=== PATIENT | female | born 1950 | race Caucasian/White ===

== ENCOUNTER → 2020-08-25 14:35 | Outpatient (CLI) | payer MEDICARE, OTHER, SELFPAY ==
--- NOTE | ~2020-08-25 | MM_ITS ---
EXAMINATION: MM screening aroldo BI w giselle HISTORY: Screening mammogram, family history of breast cancer in her mother. TECHNIQUE: Craniocaudal and mediolateral oblique 3-D tomosynthesis images were obtained and synthetic 2-D images were generated. CAD analysis was submitted and interpreted. COMPARISON: 05/28/2019, 05/18/2019, 04/30/2018 BREAST PARENCHYMAL COMPOSITION: The breasts are heterogeneously dense, which may obscure small masses . FINDINGS: There is no evidence of suspicious mass, calcification, or architectural distortion to sugg est malignancy in either breast. There has been no suspicious interval change. IMPRESSION: 1. No mammographic evidence of malignancy. 2. Recommend routine screening mammography in one year. BI-RADS Category 1: Negative Reviewed, dictated and finalized at location A. PAINTER
== END ==
PROVIDERS: PCP Internal Medicine; Visit Provider Obstetrics & Gynecology
DX: Z12.31 Encounter for screening mammogram for malignant neoplasm of breast (principal)
CPT/HCPCS: 77063; 77067

== ENCOUNTER 2020-09-11 11:51 | Outpatient (CLI) | payer MEDICARE, OTHER, SELFPAY ==
--- NOTE | ~2020-09-11 | XR_ITS ---
XR foot LT min 3V DATE: 09/11/2020 12:13 INDICATION: Pain of second, third and fourth digits, distal second and third metatarsal area TECHNIQUE: 4 views COMPARISON: None FINDINGS: There is diffuse osteopenia. No fracture, dislocation, periosteal reaction or bone destruction is detected. There is moderate moderate narrowing at the first metatarsophalangeal joint consistent with osteoarth ritis. No erosive changes are noted. 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 D MARKETER
== END 2020-09-11 11:52 | disposition home or self-care (01) ==
PROVIDERS: PCP Internal Medicine; Visit Provider Internal Medicine
DX: M79.672 Pain in left foot (principal)
CPT/HCPCS: 73630

== ENCOUNTER → 2021-08-28 07:14 | Outpatient (CLI) | payer MEDICARE, OTHER, SELFPAY ==
--- NOTE | ~2021-08-28 | MM_ITS ---
EXAMINATION: MM screening aroldo BI w giselle HISTORY: Screening TECHNIQUE: Craniocaudal and mediolateral oblique 3-D tomosynthesis images were obtained and synthetic 2-D images were generated. CAD analysis was submitted and interpreted. COMPARISON: Comparison to multiple prior studies sequentially, with oldest reviewed study dated 02/2015. BREAST PARENCHYMAL COMPOSITION: The breasts are heterogeneously dense, which may obscure small masses . FINDINGS: There is no evidence of suspicious mass, calcification, or architectural distortion to sugg est malignancy in either breast. There has been no suspicious interval change. IMPRESSION: 1. No mammographic evidence of malignancy. 2. Recommend routine screening mammography in one year. BI-RADS Category 1: Negative Reviewed, dictated and finalized at location A. HEATER
== END ==
PROVIDERS: PCP Internal Medicine; Visit Provider Obstetrics & Gynecology
DX: Z12.31 Encounter for screening mammogram for malignant neoplasm of breast (principal)
CPT/HCPCS: 77063; 77067

== ENCOUNTER 2021-11-03 09:40 | Emergency (ER) | payer MEDICARE, OTHER, SELFPAY ==
--- NOTE | ~2021-11-03 | XR_ITS ---
EXAMINATION: XR humerus RT DATE: 11/03/2021 10:20 INDICATION: Right upper arm injury and pain. TECHNIQUE: 2 views of right humerus were obtained. COMPARISON: None. FINDINGS: Bone alignment is normal. No fracture. The glenohumeral joint is not well profiled. There i s severe acromioclavicular joint osteoarthritis. IMPRESSION: 1. Severe acromioclavicular joint osteoarthritis. Reviewed, dictated and finalized at location A.
[2021-11-03 09:54] VITALS: BP 146/67; PULSE 83; RESP 20; TEMP 36.2; O2SAT 98
--- NOTE | 2021-11-03 10:00 | ED.FALL ---
HPI - Fall General Chief Complaint: Fall Stated Complaint: fall with R pain, neck pain Time Seen by Provider: 11/03/21 10:00 Source: patient Mode of arrival: ambulatory Limitations: no limitations History of Present Illness HPI Narrative: patient presents after she had a fall yesterday at home after she tripped over her 's legs falling on her right side and causing pain to the upper right arm with no one injuries no loss of consciousness no head injury has reduced range of motion of her arm right arm secondary to pain. complaint: fall Onset (ago): day(s) Fall from: standing Fall witnessed: yes, by family Place fall occurred: home Loss of consciousness: none Prolonged down time: no Symptoms prior to fall: none Context: tripped/slipped Related Data Home Medications Medication Instructions Recorded Confirmed aspirin [Aspir-81] 81 mg PO DAILY 11/03/21 11/03/21 montelukast 10 mg PO DAILY 11/03/21 11/03/21 pravastatin 10 mg PO DAILY 11/03/21 11/03/21 spironolactone 25 mg PO DAILY 11/03/21 11/03/21 Allergies Allergy/AdvReac Type Severity Reaction Status Date / Time No Known Allergies Allergy Mild Unverified 11/03/21 10:02 Review of Systems Review of Systems: All systems reviewed & are unremarkable except as noted in HPI and below PMFSH Past Medical History Medical History HTN (hypertension) Exam Const: General: no acute distress and alert Orientation/consciousness: patient oriented x3 HENMT: Head: normal to inspection Eyes: Pupils: Equal, round and reactive pupils present Neck: Neck: normal visual inspection Chest: Chest palpation & inspection: normal inspection of the chest Resp: Effort & Inspection: normal respiratory effort Auscultation: clear to auscultation bilaterally Cardio: Rate: regular rate Rhythm: regular rhythm : Speculum Exam - Cervix: normal appearance of the cervix Back/Spine/Pelvis: Back: no CVA tenderness Skin: General skin exam: normal color Rashes: no rashes Neuro: General: patient oriented x3 and moves all extremities Extrem: Other: upper arm tenderness with palpation with mildly reduced range of motion with active movement. Psych: Mental Status: mental status grossly normal Affect: normal affect Course Course Emergency Course: Patient declined pain medication, and x-ray reviewed with patient. Vital Signs Vital signs: Vital Signs Temperature 36.2 C L 11/03/21 09:54 Pulse Rate 83 11/03/21 09:54 Respiratory Rate 20 11/03/21 09:54 Blood Pressure 146/67 H 11/03/21 09:54 Pulse Oximetry 98 11/03/21 09:54 Temperature 36.2 C L 11/03/21 09:54 Pulse Rate 83 11/03/21 09:54 Respiratory Rate 20 11/03/21 09:54 Blood Pressure 146/67 H 11/03/21 09:54 Pulse Oximetry 98 11/03/21 09:54 Critical Care Time Critical Care Time Critical Care Time: No Discharge Plan Discharge Clinical Impression: Sprain of anterior shoulder joint Patient Disposition: Home, Self-Care Condition: Stable Instructions: Antibiotic Form, Shoulder Sprain (ED) Additional Instructions: take Tylenol or Motrin as needed and follow-up with primary care physician if symptoms persist or worsen. Prescriptions: No Action aspirin [Aspir-81] 81 mg Tablet,Delayed Release (Dr/Ec) 81 mg PO DAILY RF: 0 spironolactone 25 mg tablet 25 mg PO DAILY RF: 0 pravastatin 10 mg tablet 10 mg PO DAILY RF: 0 montelukast 10 mg tablet 10 mg PO DAILY RF: 0 Follow-up/Referrals: Aaron Vidales MD [Primary Care Provider] - Time of Disposition: 10:27
== END 2021-11-03 10:33 | disposition home or self-care (01) ==
PROVIDERS: Emergency Provider Emergency Medicine; PCP Internal Medicine
DX: S43.401A Unspecified sprain of right shoulder joint, initial encounter (principal); W01.0XXA Fall on same level from slipping, tripping and stumbling without subsequent striking against object, initial encounter
CPT/HCPCS: 73060; 99283

== ENCOUNTER 2022-08-16 14:14 | Outpatient (CLI) | payer MEDICARE, OTHER, SELFPAY ==
[2022-08-16 14:32] LABS: Basophils Absolute Auto 0.04 K/mm3 (0.00-0.10); Basophils Percent Auto 0.8 % (0.0-1.0); Eosinophils Absolute Auto 0.06 K/mm3 (0.02-0.50); Eosinophils Percent Auto 1.2 % (1.0-6.0); Hematocrit 39.2 % (35.0-42.0); Hemoglobin 13.4 g/dL (11.7-13.8); Immature Granulocyte Absolute 0.02 K/mm3 (0.00-0.00); Immature Granulocyte Percent A 0.4 % (0.0-0.0); Lymphocytes Absolute Auto 0.86 K/mm3 (1.10-4.50); Lymphocytes Percent Auto 16.8 % (18.0-42.0); Mean Corpuscular HGB Conc 34.2 g/dL (32.0-36.0); Mean Corpuscular Hemoglobin 31.8 pg (27.0-31.0); Mean Corpuscular Volume 93.1 fL (78.0-102.0); Mean Platelet Volume 9.7 fl (9.2-11.8); Monocytes Absolute Auto 0.63 K/mm3 (0.10-0.90); Monocytes Percent Auto 12.3 % (2.0-11.0); Neutrophils Absolute Auto 3.5 K/mm3 (1.7-7.2); Neutrophils Percent Auto 68.5 % (50.0-70.0); Platelet Count Result 264 K/mm3 (150-420); Red Blood Count 4.21 M/mm3 (4.20-5.40); Red Cell Distribution Width 12.3 % (11.6-14.4); White Blood Count 5.1 K/mm3 (4.8-10.8)
[2022-08-16 14:33] LABS: Add Urine Microscopic? NO; Appearance Urine Clear (Clear); Bilirubin Urine Negative (Negative); Blood Urine Negative (Negative); Color Urine Light Yellow (Yellow); Glucose Urine UA Negative (Negative); Ketones Urine Negative (Negative); Leukocyte Esterase Ur Negative (Negative); Nitrate Urine Negative (Negative); Protein Urine Negative (Negative); Urobilinogen Urine 0.2 mg/dL (0.2-1.0)
[2022-08-16 15:28] LABS: Alanine Aminotransferase 56 U/L (14-59); Albumin Level 4.1 g/dL (3.4-5.0); Alkaline Phosphatase 134 U/L (46-116); Anion Gap 8 mmol/L (8-16); Aspartate Amino Transferase 28 U/L (15-37); Bilirubin,Total 0.4 mg/dL (0.00-1.00); Blood Urea Nitrogen 19 mg/dL (7-18); Calcium 8.8 mg/dL (8.5-10.1); Carbon Dioxide 30 mmol/L (21-32); Chloride 103 mmol/L (98-108); Cholesterol 223 mg/dL (0-200); Estimated Glomerular Filt Rate > 60; Glucose 91 mg/dL (70-99); HDL Direct 70 mg/dL (40-60); LDL Cholesterol Calculated 96 mg/dL (<130); Magnesium 1.9 mg/dL (1.8-2.4); Osmolality Calculated 294 mOsm/kg (285-295); Potassium 3.9 mmol/L (3.5-5.1); Sodium 141 mmol/L (136-145); Thyroid Stimulating Hormone 1.32 uIU/mL (0.36-3.74); Total Protein 7.3 g/dL (6.4-8.2); Triglycerides 284 mg/dL (0-150)
== END 2022-08-16 14:15 | disposition home or self-care (01) ==
LOC: CHSLAB 14:18
PROVIDERS: PCP Internal Medicine; Visit Provider Internal Medicine
DX: I10 Essential (primary) hypertension (principal); E78.5 Hyperlipidemia, unspecified
CPT/HCPCS: 36415; 80053; 80061; 81003; 83735; 84443; 85025

== ENCOUNTER → 2023-02-18 13:32 | Outpatient (CLI) | payer MEDICARE, OTHER, SELFPAY ==
--- NOTE | ~2023-02-18 | MM_ITS ---
EXAMINATION: MM screening aroldo BI w giselle HISTORY: Screening mammogram TECHNIQUE: Craniocaudal and mediolateral oblique 3-D tomosynthesis images were obtained and synthetic 2-D images were generated. CAD analysis was submitted and interpreted. COMPARISON: August 2021, August 25, 2020 bilateral screening mammogram examinations BREAST PARENCHYMAL COMPOSITION: The breasts are heterogeneously dense, which may obscure small masses . FINDINGS: There is no evidence of suspicious mass, calcification, or architectural distortion to sugg est malignancy in either breast. There has been no suspicious interval change. IMPRESSION: 1. No mammographic evidence of malignancy. 2. Recommend routine screening mammography in one year. BI-RADS Category 1: Negative Reviewed, dictated and finalized at location A.
== END ==
PROVIDERS: PCP Internal Medicine; Visit Provider Obstetrics & Gynecology
DX: Z12.31 Encounter for screening mammogram for malignant neoplasm of breast (principal)
CPT/HCPCS: 77063; 77067

== ENCOUNTER 2023-12-12 08:06 | Outpatient (CLI) | payer MEDICARE, SELFPAY ==
[2023-12-12 08:38] LABS: Hematocrit 38.5 % (35.0-42.0); Hemoglobin 12.9 g/dL (11.7-13.8); Mean Corpuscular HGB Conc 33.5 g/dL (32-36); Mean Corpuscular Hemoglobin 30.6 pg (27.0-31.0); Mean Corpuscular Volume 91.2 fL (78.0-102.0); Mean Platelet Volume 10.8 fl (9.2-11.8); Platelet Count Result 203 K/mm3 (150-420); Red Blood Count 4.22 M/mm3 (4.20-5.40); Red Cell Distribution Width 12.3 % (11.6-14.4); White Blood Count 3.5 K/mm3 (4.8-10.8)
[2023-12-12 08:39] LABS: Appearance Urine Clear (Clear); Bilirubin Urine Negative (Negative); Blood Urine Negative (Negative); Color Urine Light Yellow (Yellow); Glucose Urine UA Negative (Negative); Ketones Urine Negative (Negative); Leukocyte Esterase Ur 1+ (Negative); Nitrate Urine Negative (Negative); Protein Urine Negative (Negative); Specific Grav Ur >= 1.030 (1.010-1.020); Urobilinogen Urine 0.2 mg/dL (0.2-1.0); pH Urine 5.5 (5.0-8.0)
[2023-12-12 08:47] LABS: Add Urine Microscopic? YES; Bacteria Urine Trace /hpf; RBC Urine None seen /hpf (0-2); Renal Epithelial Cells Urine Few /hpf; Squamous Epithelial Cell Urine Few /hpf (Few); WBC Urine 0-3 /hpf (0-3)
[2023-12-12 09:02] LABS: Alanine Aminotransferase 45 U/L (14-59); Albumin Level 3.8 g/dL (3.4-5.0); Alkaline Phosphatase 105 U/L (46-116); Anion Gap 10 mmol/L (4-12); Aspartate Amino Transferase 31 U/L (15-37); Bilirubin,Total 0.5 mg/dL (0.00-1.00); Blood Urea Nitrogen 19 mg/dL (7-18); Calcium 8.9 mg/dL (8.5-10.1); Carbon Dioxide 24 mmol/L (21-32); Chloride 105 mmol/L (98-108); Cholesterol 199 mg/dL (0-200); Estimated Glomerular Filt Rate > 60; Glucose 99 mg/dL (70-99); HDL Direct 75 mg/dL (40-60); LDL Cholesterol Calculated 115 mg/dL (<130); Osmolality Calculated 290 mOsm/kg (285-295); Potassium 4.4 mmol/L (3.5-5.1); Sodium 139 mmol/L (136-145); Thyroid Stimulating Hormone 1.94 uIU/mL (0.36-3.74); Total Protein 6.6 g/dL (6.4-8.2); Triglycerides 44 mg/dL (0-150)
[2023-12-12 10:20] LABS: Band Neutrophils Percent 0 % (0-6); Basophils Percent Manual 0 % (0-1); Eosinophils Absolute Manual 0.14 K/mm3 (0.02-0.50); Eosinophils Percent Manual 4 % (1-6); Lymphocytes Absolute Manual 1.01 K/mm3 (1.1-4.5); Lymphocytes Percent Manual 29 % (18-44); Monocytes Absolute Manual 0.14 K/mm3 (0.1-0.90); Monocytes Percent Manual 4 % (3-9); Neutrophils Percent Manual 63 % (46-73); Platelet Estimate Adequate (Adequate); Total Cells Counted 100
== END 2023-12-12 08:07 | disposition home or self-care (01) ==
LOC: CHSLAB 08:10
PROVIDERS: PCP Internal Medicine; Visit Provider Internal Medicine
DX: I10 Essential (primary) hypertension (principal)
CPT/HCPCS: 36415; 80053; 80061; 81001; 84443; 85025

== ENCOUNTER 2024-04-05 16:01 | Outpatient (CLI) | payer MEDICARE, OTHER, SELFPAY ==
--- NOTE | ~2024-04-05 | XR_ITS ---
EXAMINATION: XR chest 2V Exam Date/Time: 04/05/2024 16:26 CDT HISTORY: URI X 1 WEEK/HX OF ASTHMA Comparison: 11/22/2016 08/08/2016. RESULT: Lines, tubes, and devices: None. Lungs and pleura: Subsegmental opacity in the posterior left lower lobe. Mild right hemidiaphragm el evation. Cardiomediastinal silhouette: Stable. Other: No acute osseous or upper abdominal finding. IMPRESSION: Subsegmental left lower lobe airspace disease, may represent atelectasis or consolidation. Reviewed, dictated and finalized at location K. IMPRESSION: Subsegmental left lower lobe airspace disease, may represent atelectasis or con solidation.
[2024-04-05 16:49] LABS: Basophils Absolute Auto 0.06 K/mm3 (0.00-0.10); Eosinophils Absolute Auto 0.24 K/mm3 (0.02-0.50); Hemoglobin 13.2 g/dL (11.7-13.8); Immature Granulocyte Percent A 1.7 % (0.0-0.0); Lymphocytes Absolute Auto 1.28 K/mm3 (1.10-4.50); Lymphocytes Percent Auto 21.4 % (18.0-42.0); Mean Corpuscular HGB Conc 33.8 g/dL (32-36); Mean Corpuscular Hemoglobin 31.1 pg (27.0-31.0); Mean Platelet Volume 10.4 fl (9.2-11.8); Monocytes Absolute Auto 0.57 K/mm3 (0.10-0.90); Monocytes Percent Auto 9.5 % (2.0-11.0); Neutrophils Absolute Auto 3.72 K/mm3 (1.70-7.20); Neutrophils Percent Auto 62.4 % (50.0-70.0); Platelet Count Result 288 K/mm3 (150-420); Red Blood Count 4.24 M/mm3 (4.20-5.40); Red Cell Distribution Width 11.8 % (11.6-14.4)
[2024-04-05 17:58] LABS: Anion Gap 10 mmol/L (4-12); Blood Urea Nitrogen 12 mg/dL (7-18); Calcium 9.3 mg/dL (8.5-10.1); Carbon Dioxide 26 mmol/L (21-32); Chloride 103 mmol/L (98-108); Estimated Glomerular Filt Rate 48; Glucose 101 mg/dL (70-99); Osmolality Calculated 287 mOsm/kg (285-295); Potassium 4.6 mmol/L (3.5-5.1); Sodium 139 mmol/L (136-145)
== END 2024-04-05 16:02 | disposition home or self-care (01) ==
LOC: CHSLAB 16:04
PROVIDERS: PCP Internal Medicine; Visit Provider Nurse Practitioner Family
DX: J06.9 Acute upper respiratory infection, unspecified (principal); R91.8 Other nonspecific abnormal finding of lung field
CPT/HCPCS: 36415; 71046; 80048; 85025

== ENCOUNTER 2024-04-19 09:03 | Outpatient (CLI) | payer MEDICARE, OTHER, SELFPAY ==
--- NOTE | ~2024-04-19 | XR_ITS ---
EXAMINATION: XR chest 2V 04/19/2024 09:27 INDICATION: Cough follow-up PROCEDURE: 2 view chest COMPARISON: Comparison to multiple prior studies sequentially, with oldest reviewed study dated 11/2016. FINDINGS: The lungs are clear. The cardiomediastinal silhouette is within normal limits. There are no pleural effusions. There is no pneumothorax suspected. There is a lower thoracic compression fra cture, likely chronic. IMPRESSION: 1: NO ACUTE CARDIOPULMONARY DISEASE. Reviewed, dictated and finalized at location B.
== END 2024-04-19 09:04 | disposition home or self-care (01) ==
LOC: CHSIMG 09:05
PROVIDERS: PCP Internal Medicine; Visit Provider Internal Medicine
DX: R05.9 Cough, unspecified (principal)
CPT/HCPCS: 71046

== ENCOUNTER 2024-05-03 11:56 | Outpatient (CLI) | payer MEDICARE, OTHER, SELFPAY ==
--- NOTE | ~2024-05-03 | XR_ITS ---
Left Hand Technique: PA, oblique, and lateral views were obtained. Clinical History: Third digit pain Findings: There are probable small, minimally less place oblique intra-articular fracture at the dors al aspect of the base of the third distal phalanx. No other fracture or dislocation seen.. Joint spac es are preserved. Soft tissues are unremarkable. Impression: Probable small intra-articular fracture at the dorsal aspect of the base of the third middle phalanx, as above. Reviewed, dictated and finalized at location M. Impression: Probable small intra-articular fracture at the dorsal aspect of the base of the third middle phalanx, as above.
== END 2024-05-03 11:57 | disposition home or self-care (01) ==
LOC: CHSIMG 11:59
PROVIDERS: PCP Internal Medicine; Visit Provider Internal Medicine
DX: M20.012 Mallet finger of left finger(s) (principal)
CPT/HCPCS: 73130

== ENCOUNTER 2024-09-05 07:55 | Emergency (ER) | payer MEDICARE, OTHER, SELFPAY ==
--- NOTE | ~2024-09-05 | XR_ITS ---
HISTORY: Fall, Lt. posterior chest wall pain COMPARISON: 04/19/2024 TECHNIQUE: 3 views of the left ribs were performed along with a PA and lateral view of the chest FINDINGS: No acute displaced left-sided rib fracture is appreciated. The adjacent left lung is unremarkable. The cardiomediastinal silhouette is unremarkable. The lungs are clear. Compression of a lower thoracic vertebral body, unchanged from 04/19/2024, likely chronic. Bone mineralization is age-appropriate. IMPRESSION: No acute displaced left-sided rib fracture. The lungs are clear. Reviewed, dictated and finalized at location A. TERIE TABLE ASSEMBLER
--- OUTSIDE RECORDS SUMMARY | 2024-09-05 07:57 | XMS_ITS | Data Portability ---
Author Organization [facility], [address] [place] [address] [place]rology ([place]) Address [address] [place] [address] Care Team Providers Care Extra Gang Supervisor Name Role Phone JETT LAZO Primary Care Provider [phone] JETT CHAVIRA Referring Provider Assessment Encounter Date Assessment Date Assessment LastModified by Organization Details LastModified Time 01/14/2024 01/14/2024 The patient has chronic right carpal tunnel syndrome. Treatment options were discussed with her. She is going to be scheduled for right carpal tunnel release. The surgical procedure was discussed with her in detail including risks, benefits, and possible complications. Possible complications discussed included infection, nerve injury occurring during the procedure resulting in permanent numbness or weakness and the possibility of persistent or recurrent symptoms. All of her questions were answered and she is agreeable to proceed with the proposed surgical procedure. jules [email or web address] Not available 01/16/2024 14:52:44 02/10/2024 02/10/2024 The history and physical dated completed by {{}}has been reviewed, the patient has been examined and no change has occurred in the patient s condition since the history and physical was completed. [email or web address] Not available 02/10/2024 05:35:01 02/24/2024 02/24/2024 Chief complaint: Status post right carpal tunnel release History of present illness: Patient is a 73-year-old female presenting to the clinic for postoperative evaluation 2 weeks following a right carpal tunnel release. Patient reports she is doing very well and her pain is well-controlled. Patient denies any erythema or drainage from her incision. Patient reports her numbness and tingling has improved since surgery. Exam: Patient is in no acute distress and is well-dressed and well-nourished. Patient has appropriate mood and affect. Respirations are nonlabored. Sclera are nonicteric. Patient has a well-healed surgical incision that is without erythema or ecchymosis. Patient has good cheerleading coach strength and is able to flex and extend all fingers without difficulty. Radial pulses 2+. Capillary refill jackson is jackson and occurs within 2 seconds. Assessment: Status post right carpal tunnel release Plan: Patient is doing very well following the surgery. Sutures were removed in office today. She was instructed on proper postoperative care including scar tissue massage and Theraputty. Patient will call the office with any questions or concerns. marcia Not available 02/24/2024 11:22:10 Plan of Treatment Reminders Order Date Submit Date Provider Last Modified By Organization Details Last Modified Time Details Appointments None recorded. Lab None recorded. Referral None recorded. Procedures None recorded. Surgeries None recorded. Imaging None recorded. Medication Orders hydrocodone 5 mg-acetamin ophen 325 mg tablet 2023 024 [facility], [address], [place], [id number], 16:13:36 Patient TargetsNo targets recorded. Patient InstructionsNo instructions recorded. Reason for Referral None Reported. Results Created Date Observation Date Name Description Value Unit Range Abnormal Flag Note LastModifiedBy Organization Detail LastModifiedTime 01/08/20 24 12/06/2021 nerve condu ction study /EMG (PROC ) No observ ation record ed. [email or web address] [facility] [address], [place], [address], 01/08/2024 11:58:45 Result Notes None recorded. Problems Name Problem SNOMED Code Status Onset Date Resolution Date Notes Provider Name and Address Organization Details Recorded Time Carpal tunnel syndrome of right wrist [id number] Active 2023 Katerina Zilauren [facility] 4 12:05:59 Problem Notes None recorded. Procedures Surgical History Date Name Laterality Status Provider Name and Address Organization Details Recorded Time 02/10/20 24 [place] Operative Report completed Jaylon Montague MD [address] [place] [address], [phone], [facility] 02/11/2024 05:22:42 02/10/20 Carpal tunnel surgery completed Pily Fisher [facility] 03/18/2024 17:00:39 Colonoscopy with biopsy completed Not Available Health Note 02/17/2024 11:58:17 Imaging Results Imaging Date Name Status LastModified by Organiz ation Details LastModified Time 12/06/2021 nerve conduction study/EMG (PROC) completed [email or web address] [facility] [address] [place] [address], [address], 01/08/2024 11:58:45 Procedure Notes None recorded. Medical Equipment None Reported. Allergies No known drug allergies Medications Name Sig Start Date Stop Date Status Note LastModified by Organization Details LastModified Time hydrocodone 5 mg-acetaminophe n 325 mg tablet Take 1-2 tablets every 6 hours as needed for pain active Not Available Not Available No t Available spironolactone 25 mg tablet active Not Available Not Available Not Available pravastatin 10 mg tablet active Not Available Not Available No t Available montelukast 10 mg tablet active Not Available Not Available No t Available Vitals None Recorded Social History Question Answer Notes LastModified by Organizat ion Details LastModified Time Do You Have An Advance Directive? No [email or web address] Information not available 02/17/2024 What Is Your Level Of Alcohol Consumption? Occasional [email or web address] Information not available 02/17/2024 How Many Times Per Week Do You Consume Alcohol? 1-2 Times Per Week [email or web address] Information not available 02/17/2024 What Is Your Level Of Caffeine Consumption? Moderate [email or web address] Information not available 02/17/2024 Are You Currently Employed? 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 3-4 Times Per Week [email or web address] Information not available 02/17/2024 Do You Have A Medical Power Of Cad Engineer? No [email or web address] Information not available 02/17/2024 What Was The Date Of Your Most Recent Tobacco Screening? 02/24/2024 [email or web address] Information not available 02/17/2024 What Is Your Relationship Status? [email or web address] Information not available 02/17/2024 Do You Use Any Illicit Or Recreational Drugs? No [email or web address] Information not available 02/17/2024 Sex: Unknown Functional Status Question Answer Note LastModified by Organization D etails LastModified Time What is your exercise level? Moderate [email or web address] Information not available 02/17/2024 Mental Status None recorded. Family History Relationship Description Onset Age of this Age Resolved Age Notes LastModified by Organization Details LastModified Time Father Arthritis [email or web address] Not available 01/12/2024 17:08:56 Father Family history of malignant neoplasm [email or web address] Not available 2023 17:08:56 Father Chronic obstructive pulmonary disease [email or web address] Not available 2023 17:08:56 Father Hypertensive disorder [email or web address] Not available 2023 11:58:16 Mother Asthma [email or web address] Not available 17:08:56 Mother Cerebrovascu lar accident [email or web address] Not available 17:08:56 Mother Osteoporosis [email or web address] Not availa ble 02/17/2024 11:58:16 Sister Family history of malignant neoplasm [email or web address] Not available 2023 17:08:56 Brother Family history of malignant neoplasm [email or web address] Not available 2023 17:08:56 Brother Chronic obstructive pulmonary disease [email or web address] Not available 2023 17:08:56 Brother Heart disease [email or web address] Not available 2023 17:08:56 Brother Hypertensive disorder [email or web address] Not available 2023 17:08:56 Brother Asthma [email or web address] Not available 0 02/17/2024 11:58:16 Medical History Condition Response Attention-deficit Hyperactivity Disorder N High Blood Pressure Y Thyroid Problems N COPD N Depression N Anemia N Diabetes N Anxiety Disorder N Bleeding Disorder N Arthritis N Hyperlipidemia Y Cancer N Stroke N Asthma Y Seizures N Heart Disease N Fibromyalgia N Osteoporosis N Kidney Disease N Gynecological HistoryNo gynecological history recorded. Obstetrics History GPAL:G 0 P 0 0 0 0 Past Encounters Encounter ID Performer Location Encounter Start Date Encounter Closed Date Diagnosis/Indication Diagnosis SNOMED-CT Code Diagnosis ICD10 Code Diagnosis Note [id number] Jaylon Montague MD [address] [facility] [address] [place] [address] 01/14/2024 11:16:49 01/14/2024 12:26:37 [id number] Thomas Barnard MD [facility] [place] [address] [place] [address], [place] [address] 02/10/2024 13:24:51 02/19/2024 15:37:36 [id number] Jaylon Montague MD [facility] [address] [place] [address], [address] [place] [address], [place] [address] 02/10/2024 13:24:52 02/11/2024 13:05:39 Carpal tunnel syndrome of right wrist [id number] G56.01 [id number] Jaylon Montague MD [address] [facility] [address], [place] [address] 02/24/2024 11:13:28 02/24/2024 11:58:49 Postoperative visit [id number] Z48.89 Removal of suture 437965 01 Z48.02 Health Concerns Section Related Observation LastModified by Organization Detai ls LastModified Time None Recorded Concern Status LastModified by Organization Details LastModified Time None Recorded Advance Directives Directive N: Payers Encounter Date Sequence Insurance Name Policy Number Policy Bojorquez Covered Member ID Bojorquez Member ID Guarantor Name 01/14/2024 1 [place] Allyson Walls Saschagiorgichasidyer [id number] Allyson Caicedoaustermeier 01/14/2024 2 [facility] [id number] Serg Natasha Pacotermeier [id number] Allyson Saschaaustermeier 02/10/2024 1 [place] Allyson Walls Saschagiorgichasidyer [id number] Allyson Caicedoaustermeier 02/10/2024 2 [facility] [id number] Serg Caicedoaustermeier [id number] Allyson Saschaaustermeier 02/10/2024 1 [place] Allyson Walls Saschagiorgibarry [id number] Allyson Lopez 02/10/2024 2 [facility] [id number] Serg Lopez [id number] Allyson Lopez 02/24/2024 1 [place] Allyson Lopez [id number] Allyson Lopez 02/24/2024 2 [facility] [id number] Serg Lopez [id number] Allyson Lopez Notes Date Note Type Note Provider Name and Address Organization Details Recorded Time 4 text/html Allyson is seen today concerning numbness and tingling in her right hand. She was seen in 2021 and was diagnosed with right carpal tunnel syndrome. She feels the symptoms have gotten worse since that time. The symptoms are worse in her middle and ring fingers but can involve the thumb and index fingers. She is waking up at night with symptoms. She gets increased symptoms during the day with various activities. Splinting at night is no longer helping her symptoms significantly. Jaylon Montague MD [facility], [address], [facility] 01/19/2024 05:06:41 4 text/html [facility] PRE-ANESTHETIC EVALUATIONReported bypatient.Reason for Visit:PROPOSED PROCEDURE: RIGHT CTR; SURGEON: Clari; PREOP DIAGNOSIS: Carpal tunnel syndrome, right upper limb Review of Systems General:Exercise tolerance moderate; Denies SOB, SMITH, PND; Denies chest pain or chest tightness Cardiac:No Hx of CAD; Hypertension; Hyperlipidemia Pulmonary:Respiratory system at baseline; Asthma ,stable Prior Anesthetic Complication:no history of anesthesia complications Family Anesthetic Hx:no history of anesthesia complications Physical Exam: AirwayMP II; Limited mouth opening TeethCrowns NeckFull range of motion CardiovascularRegular rate and rhythm RespiratoryClear to auscultation bilaterally; No wheeze noted GastrointestinalNPO status >6 hrs solids, >2 hrs clear liquids Vital Signs:Vital signs reviewed. Please refer to nursing preop note for values Assessment:ASA PS: II Plan:MAC Discussion:I have discussed with the patient the anesthetic plan, alternatives, pertinent risks, and complications; including but not limited to PONV, dental injury, sore throat, OK, stroke, etc. All questions were answered. Patient verbalize(s) understanding and agree(s) to proceed. Kai Barnard MD [address] [place] [address], [phone], [facility] 02/10/2024 14:38:49 4 text/html Allyson Corey a 73 year oldfemalepresenting for care. CHERI BONILLA PA-C [address] [place] [address], [phone], [facility] 02/25/2024 09:02:05 OBGyn Episode No OBEpisode recorded.
--- OUTSIDE RECORDS SUMMARY | 2024-09-05 07:57 | XMS_ITS | Encounter Summary ---
Author Organization [facility] Address [address] [place] [address] Care Team Providers Care Db2 Dba Name Role Phone Aaron Vidales MD Primary Care Provider [phone] Encounter Details Date Type Department Care Team (Late st Contact Info) Description 03/29/2021 Lab Requisition [facility] DermPath Lab [address] [place] [phone] Fernando Ortiz MD [address] [place] [address] Social History Tobacco Use Types Packs/Day Years Used Date Smoking Tobacco: Never Smokeless Tobacco: Never Alcohol Use Standard Drinks/Week Comments Yes 0 (1 standard drink = 0.6 oz pur e alcohol) Sex and Gender Information Value Date Recorded Sex Assigned at Not on file Gender Identity Not on file Sexual Orientation Not on file documented as of this encounter Plan of Treatment Not on file documented as of this encounter Procedures Procedure Name Priority Date/Time Associated Diagnosis Comments DERMATOPATHOLOGY Routine 03/28/2021 12:0 0 AM CDT documented in this encounter Results * DERMATOPATHOLOGY (03/28/2021 12:00 AM CDT) Case Report Dermatopathology Report Case: [id number] Authorizing Provider: Fernando Ortiz MD Collected: 03/28/2021 12:00 AM Ordering Location: [facility] DermPath Lab Received: 03/29/2021 01:14 PM Pathologist: Vini Briseno MD Specimen: Skin, right mid lat upper arm 4:10 PM CDT DERMATOPATHOLOGY LABORATORY Final Diagnosis Specimen A. SKIN, right mid lat upper arm: SEBORRHEIC KERATOSIS, CLONAL TYPE; IRRITATED (L82.1) 4:10 PM CDT DERMATOPATHOLOGY LABORATORY Clinical History R/O SCC, LPLK, Ramírez's, ISK. 4:10 PM CDT DERMATOPATHOLOGY LABORATORY Gross Description Specimen A: Received is one formalin filled container labeled with the patient's name and designated right mid lat upper arm. The specimen consists of a shave biopsy measuring [id number]. Jar 0. 4:10 PM CDT DERMATOPATHOLOGY LABORATORY Microscopic Description Specimen A. SKIN, right mid lat upper arm: Sections show a proliferation of keratinocytes with overlying hyperkeratosis. Aggregates of keratinocytes with abundant pale-staining cytoplasm appear demarcated from surrounding basaloid keratinocytes. 4:10 PM CDT DERMATOPATHOLOGY LABORATORY Disclaimer An external and internal positive and negative controls are appropriate for the histochemical, immunohistochemical and immunofluorescence stain(s) in this case (if any), except where stated explicitly. The performance characteristics of the stain(s) cited in this report were developed and its performance characteristic determined by the Dermatopathology Laboratory at [facility], directed by Dr. Shakira Briseno. These tests need not be, and therefore are not, approved by the [place] Food and Drug Administration. The tests are used for clinical purposes. Billing Codes Specimen Charges Stain Charges 23078 1 4:10 PM CDT DERMATOPATHOLOGY LABORATORY Embedded Images 4:10 PM CDT DERMATOPATHOLOGY LABORATORY Pathology/Cytolog y TISSUE SPECIMEN FROM SKIN / Unknown 03/28/2021 03/29/2021 1:14 PM CDT Fernando Ortiz MD LAB - PATHOLOGY/CYTO LOGY ORDERABLES DERMATOPATHOLOGY LABORATORY [facility] - Department of Dermatology [address], [address] Floor [place], [place] [id number] [place] [address] documented in this encounter Visit Diagnoses Not on filedocumented in this encounter Care Teams Db2 Dba Relationship Specialty Start Date End Date Aaron Vidales MD [address] [place], [place] [phone] PCP - General 12/04/16 documented as of this encounter
--- OUTSIDE RECORDS SUMMARY | 2024-09-05 07:58 | XMS_ITS | Referral Summary ---
Author Organization [facility] Address [address] [place] [address] Care Team Providers Care Instrument Tech Name Role Phone Aaron Vidales MD Primary Care Provider [phone] Source Comments [facility],non-owned Affiliates and Associated Physician Practices is amultiple site organization consisting of ambulatory clinics and hospital sitesin [place], [place], [place] and [place]. This disclosure is being madepursuant to the Care Everywhere program and may not contain all information available regarding this patient. Last updated 18.[facility] Medications * Be aware that medications may not be up to date on this document. Alwaysverify current medications with the patient. Medication Sig Dispensed Refills Start Date End Date Status ibuprofen (ADVIL) 200 MG capsule Take by mouth. 12/10/2016 Active Calcium Carb-Cholecalciferol (CALCIUM + D3) 600-200 MG-UNIT Take by mouth DAILY. 12/10/2016 Active aspirin (ASPIRIN) 81 MG chew tablet Take 81 mg by mouth DAILY. 12/10/2016 Active montelukast (SINGULAIR) 10 MG tablet Take 10 mg by mouth DAILY. 12/10/2016 Active pyridoxine 25 MG tablet Take by mouth DAILY. 12/10/2016 Active spironolactone (ALDACTONE) 25 MG tablet Take 25 mg by mouth DAILY. 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 7 Social History Tobacco Use Types Packs/Day Years Used Date Smoking Tobacco: Never Smokeless Tobacco: Never Alcohol Use Standard Drinks/Week Comments Yes 0 (1 standard drink = 0.6 oz pur e alcohol) Sex and Gender Information Value Date Recorded Sex Assigned at Not on file Gender Identity Not on file Sexual Orientation Not on file Last Filed Vital Signs Vital Sign Reading Time Taken Comments Blood Pressure 140/85 12/10/2016 3:07 PM CDT Pulse 72 12/10/2016 3:07 PM CDT Temperature - - Respiratory Rate - - Oxygen Saturation 97% 12/10/2016 3:07 PM CDT Inhaled Oxygen Concentration - - Weight 59 kg (130 lb) 12/10/2016 1:49 PM CDT Height 148.6 cm (4' 10.5 ) 12/10/2016 1:49 PM CD T Body Mass Index 26.71 12/10/2016 1:49 PM CDT Plan of Treatment Not on file Care Teams Instrument Tech Relationship Specialty Start Date End Date Aaron Vidales MD [address] [place], [place] [id number] PCP - General 12/04/16
--- OUTSIDE RECORDS SUMMARY | 2024-09-05 07:58 | XMS_ITS | Clinical Summary ---
Author Organization [facility] Address [address] [facility] [place] [address] Care Team Providers Care Green Lumber Grader Name Role Phone Aaron Vidales MD Primary Care Provider [phone] Source Comments [facility],non-owned Affiliates and Associated Physician Practices is amultiple site organization consisting of ambulatory clinics and hospital sitesin [place], [place] and [place]. This disclosure is being madepursuant to the Care Everywhere program and may not contain all information available regarding this patient. Last updated 18.[facility] Medications * Be aware that medications may [...] Neoplasm of uncertain behavior of skin 7 Family History Medical History Relation Name Comments Cancer Father Cancer Mother Cancer Sister Relation Name Status Comments Father Mother Sister Social History Tobacco Use Types Packs/Day Years [...] 12/10/2016 1:49 PM CDT Plan of Treatment Health Maintenance Due Date Last Done Comments BONE DENSITY TESTING 1950 COLOGUARD (AGES 45-75) - COL ON CA SCREENING 1948 COLON MONITORING 1948 COLONOSCOPY - COLON CA SCREENING 1948 CT COLONOGRAPHY - COLON CA SCREENING 1950 Colorectal Cancer Screening 1948 FIT - COLON CA SCREENING 1948 FLEX SIG - COLON CA SCREENING 1948 LIPID TESTING 1948 MAMMOGRAM 1948 MEDICARE AWV 12 MONTHS 1948 HEPATITIS C SCREENING 08/12/1966 DTAP/TDAP/TD VACCINES (1 - Tdap) 1967 PNEUMOCOCCAL VACCINE 50+ (1 of 1 - PCV) 1998 ZOSTER VACCINE (1 of 2) 1998 Respiratory Syncytial Virus (RSV) Vaccine Pt: or over 60 yrs (1 - 1-dose 75+ series) 2023 COVID-19 VACCINE ( - 2023-2 5 season) 2024 INFLUENZA VACCINE (#1) 2024 DEPRESSION SCREENING 07/21/2024 HEPATITIS B VACCINE Aged Out No longe r eligible based on patient's age to complete this topic HIB VACCINE Aged Out No longer eligi ble based on patient's age to complete this topic HPV VACCINE Aged Out No longer eligi ble based on patient's age to complete this topic MENINGOCOCCAL (Group B) VACCINE Aged Out No longer eligible based on patient's age to complete this topic MENINGOCOCCAL VACCINE Aged Out No luis antonio leonardo eligible based on patient's age to complete this topic Care Teams Green Lumber Grader Relationship Specialty Start Date End Date Aaron Vidales MD [address] [place] [address] PCP - General 12/04/16
--- OUTSIDE RECORDS SUMMARY | 2024-09-05 07:58 | XMS_ITS | Patient Health Summary ---
Author Organization [facility] Address [address] [place] [address] Care Team Providers Care Piano Case And Bench Assembler Name Role Phone Aaron Vidales MD Primary Care Provider [phone] Note from [facility],non-owned Affiliates and Associated Physician Practices is amultiple site organization consisting of ambulatory clinics and hospital sitesin [place], [place], [place] and [place]. This disclosure is being madepursuant to the Care Everywhere program and may not contain all information available regarding this patient. Last updated 18.[facility] Medications * Be aware that medications may not be up to date on this document. Alwaysverify current medications with the patient. * ibuprofen (ADVIL) 200 MG capsule(Started 12/10/2016) Take by mouth. * Calcium Carb-Cholecalciferol (CALCIUM + D3) 600-200 MG-UNIT(Started 12/10/2016) Take by mouth DAILY. * aspirin (ASPIRIN) 81 MG chew tablet(Started 12/10/2016) Take 81 mg by mouth DAILY. * montelukast (SINGULAIR) 10 MG tablet(Started 12/10/2016) Take 10 mg by mouth DAILY. * pyridoxine 25 MG tablet(Started 12/10/2016) Take by mouth DAILY. * spironolactone (ALDACTONE) 25 MG tablet(Started 12/10/2016) Take 25 mg by mouth DAILY. Active Problems Problem Noted Date Diagnosed Date [...] Mass Index 26.71 12/10/2016 1:49 PM CDT Procedures * DERMATOPATHOLOGY(Performed 03/28/2021) * DERMATOPATHOLOGY(Performed 12/10/2016) * DERMATOPATHOLOGY(Performed 11/26/2016) * DERMATOPATHOLOGY(Performed 11/23/2015) * DERMATOPATHOLOGY(Performed 10/19/2013) Results * DERMATOPATHOLOGY (03/28/2021 12:00 AM CDT) Only the most recent of5 resultswithin the time period is included. Case Report Dermatopathology Report Case: [id number] Authorizing Provider: Fernando Ortiz MD Collected: 03/28/2021 12:00 AM Ordering Location: [facility] DermPath Lab Received: 03/29/2021 01:14 PM [...] specimen consists of a shave biopsy measuring [id number]. Jar 0. 1 4:10 PM CDT DERMATOPATHOLOGY LABORATORY Microscopic Description Specimen A. SKIN, right mid lat upper arm: Sections show a proliferation of keratinocytes with overlying hyperkeratosis. Aggregates of keratinocytes with abundant pale-staining cytoplasm appear demarcated from surrounding basaloid keratinocytes. 1 4:10 PM CDT DERMATOPATHOLOGY LABORATORY Disclaimer An external and internal positive and negative controls are appropriate for the histochemical, immunohistochemical and immunofluorescence stain(s) in this case (if any), except where stated explicitly. The performance characteristics of the stain(s) cited in this report were developed and its performance characteristic determined by the Dermatopathology Laboratory at [facility], directed by Dr. Shakira Briseno. These tests need not be, and therefore are not, approved by the [place] Food and Drug Administration. The tests are used for clinical purposes. Billing Codes Specimen Charges Stain Charges 59215 1 1 4:10 PM CDT DERMATOPATHOLOGY LABORATORY Embedded Images 1 4:10 PM CDT DERMATOPATHOLOGY LABORATORY Pathology/Cytolog y TISSUE SPECIMEN FROM SKIN / Unknown 03/28/2021 03/29/2021 1:14 PM CDT Fernando Ortiz MD LAB - PATHOLOGY/CYTO LOGY ORDERABLES DERMATOPATHOLOGY LABORATORY [facility] - Department of Dermatology [address] [phone] Care Teams Piano Case And Bench Assembler Relationship Specialty Start Date End Date Aaron Vidales MD [address] [place] [address] PCP - General 12/04/16
[2024-09-05 07:59] VITALS: BP 158/72; PULSE 77; RESP 18; TEMP 36.6; O2SAT 100
--- NOTE | 2024-09-05 08:03 | ED_ITS ---
HPI - Fall General Chief Complaint: Fall Stated Complaint: fall Time Seen by Provider: 09/05/24 08:03 Source: patient Mode of arrival: ambulatory Limitations: no limitations History of Present Illness HPI Narrative: 74-year-old female with a history of dyslipidemia, CKD presents to the ED after she [place] and presents with -- left lateral chest wall pain. Worse with deep breathing. No shortness of breath. the patient was coming down the steps when she slipped on the last step and fell on her Left lateral back. No other injuries noted. MD complaint: fall Onset (ago): hour(s) ( 1 hour ago) Fall from: standing Fall witnessed: yes, by family Place fall occurred: other ( [place]) Loss of consciousness: none Prolonged down time: no Symptoms prior to fall: none Context: tripped/slipped Location of injury: chest Quality: aching Associated symptoms (after fall): denies Related Data Home Medications ?Medication ?Instructions ?Recorded ?Confirmed ?Last Taken ?Type aspirin 81 mg tablet,delayed 81 mg PO DAILY 11/03/21 11/03/21 11/03/21 History release montelukast 10 mg tablet 10 mg PO DAILY 11/03/21 11/03/21 11/03/21 History pravastatin 10 mg tablet 10 mg PO DAILY 11/03/21 11/03/21 11/03/21 History spironolactone 25 mg tablet 25 mg PO DAILY 11/03/21 11/03/21 11/03/21 History Allergies Allergy/AdvReac Type Severity Reaction Status Date / Time No Known Allergies Allergy Mild Verified 09/05/24 08:01 Review of Systems Review of Systems: All systems reviewed & are unremarkable except as noted in HPI and below [facility] Past Medical History Medical History (Updated 09/05/24 @ 08:51 by Hunter Taylor MD) Dyslipidemia CKD (chronic kidney disease) HTN (hypertension) Exam Narrative: vitals are stable Const: Orientation/consciousness: patient oriented x3 Limitations: no limitations HENMT: Head: normal to inspection Ears: external ears normal Face/Nose/Sinus: Normal external nose present Face and sinus: normal facial exam Mouth: Yes Normal oral and palatal mucosa present Throat: posterior oropharynx normal Eyes: Conjunctivae: conjunctivae normal Pupils: Equal, round and reactive pupils present EOM: EOMs intact bilaterally Direct Ophthalmoscopy: no photophobia Neck: Neck: normal visual inspection and no lymphadenopathy Chest: Chest palpation & inspection: normal inspection of the chest Other: tenderness over the left lateral left posterior chest wall. bruising over the left posterior back around the 10th rib chest x-ray did not show any acute findings. Resp: Effort & Inspection: normal respiratory effort Auscultation: clear to auscultation bilaterally Cardio: Rate: regular rate Rhythm: regular rhythm GI: Auscultation: normal bowel sounds Other: No tenderness/rigidity / rebound. : General: Yes no CVA tenderness Back/Spine/Pelvis: Back: no CVA tenderness Cervical Spine: collar present Skin: General skin exam: normal color Rashes: no rashes Wounds: no wounds Neuro: General: patient oriented x3, moves all extremities, no meningeal signs, no focal motor deficits and CN's II-XI intact bilaterally Cranial nerves: Yes Nystagmus not present Speech: normal speech Gait exam (Neuro): Normal gait present Extrem: General: normal to inspection Psych: Mental Status: mental status grossly normal Affect: normal affect Attitude: cooperative Course Course Emergency Course: Accidental fall chest wall pain Vital Signs Vital signs: Vital Signs Temperature 36.6 C 09/05/24 07:59 Pulse Rate 77 09/05/24 07:59 Respiratory Rate 18 09/05/24 07:59 Blood Pressure 158/72 H 09/05/24 07:59 Pulse Oximetry 100 09/05/24 07:59 Oxygen Delivery Room Air 09/05/24 07:59 Temperature 36.6 C 09/05/24 07:59 Pulse Rate 77 09/05/24 07:59 Respiratory Rate 18 09/05/24 07:59 Blood Pressure 158/72 H 09/05/24 07:59 Pulse Oximetry 100 09/05/24 07:59 Oxygen Delivery Room Air 09/05/24 07:59 MDM - Fall MDM Narrative Medical decision making narrative: Accidental fall chest wall pain Differential Diagnosis Differential diagnosis: Likely other ( pulmonary contusion) Lab Data Attestation: I reviewed the patient's lab results. Discharge Plan Discharge Clinical Impression: Chest wall pain Accidental fall Qualifiers: Encounter type: initial encounter Qualified Code(s): W19.XXXA - Unspecified fall, initial encounter Patient Disposition: Home, Self-Care Condition: Stable Instructions: Antibiotic Form, Chest Wall Pain (ED) Patient Language: Lithuanian Prescriptions: New hydrocodone-acetaminophen 5-325 mg tablet 1 tablet PO Q12H PRN (Reason: pain) Qty: 10 0RF diclofenac sodium 50 mg tablet,delayed release (DR/EC) 50 mg PO Q12H PRN (Reason: pain) Qty: 30 0RF No Action aspirin [Aspir-81] 81 mg Tablet,Delayed Release (Dr/Ec) 81 mg PO DAILY spironolactone 25 mg tablet 25 mg PO DAILY pravastatin 10 mg tablet 10 mg PO DAILY montelukast 10 mg tablet 10 mg PO DAILY Follow-up/Referrals: Aaron Vidales MD [Primary Care Provider] - Time of Disposition: 08:57
--- NOTE | 2024-09-05 08:17 | PC.NURSE ---
Patient taken down to Xray
[2024-09-05] MEDS: KETOROLAC 30 MG/ML VIAL (*BKC) IM (08:28)
--- OUTSIDE RECORDS SUMMARY | 2024-09-05 08:39 | XMS_ITS | Patient Health Summary ---
Author Organization [facility] Address [address] [place] [address] Care Team Providers Care Senior Sales Associate Name Role Phone Aaron Vidales MD Primary Care Provider [phone] Note from [facility],non-owned Affiliates and Associated Physician Practices is amultiple site organization consisting of ambulatory clinics and hospital sitesin [place], [place], [place] and [place]. This disclosure is being madepursuant to the Care Everywhere program and may not contain all information available regarding this patient. Last updated 18.[facility] Medications * Be aware that medications may [...] is included. Case Report Dermatopathology Report Case: [id number] Authorizing Provider: Fernando Ortiz MD Collected: 03/28/2021 12:00 AM Ordering Location: [facility] DermPath Lab Received: 03/29/2021 01:14 PM Pathologist: [...] specimen consists of a shave biopsy measuring [id number]. Jar 0. 1 4:10 PM CDT DERMATOPATHOLOGY [...] characteristic determined by the Dermatopathology Laboratory at [facility], directed by Dr. Shakira Briseno. These tests need not be, and therefore are not, approved by the [place] Food and Drug Administration. The tests are used for clinical purposes. Billing Codes Specimen Charges Stain Charges 59355 1 1 4:10 PM CDT DERMATOPATHOLOGY LABORATORY Embedded Images 1 4:10 PM CDT DERMATOPATHOLOGY LABORATORY Pathology/Cytolog y TISSUE SPECIMEN FROM SKIN / Unknown 03/28/2021 03/29/2021 1:14 PM CDT Fernando Ortiz MD LAB - PATHOLOGY/CYTO LOGY ORDERABLES DERMATOPATHOLOGY LABORATORY [facility] - Department of Dermatology [address] [phone] Care Teams Senior Sales Associate Relationship Specialty Start Date End Date Aaron Vidales MD [address] [place] [address] PCP - General 12/04/16
--- OUTSIDE RECORDS SUMMARY | 2024-09-05 08:39 | XMS_ITS | Encounter Summary ---
Author Organization [facility] Address [address] [place] [place] [address] Care Team Providers Care Spreader Name Role Phone Aaron Vidales MD Primary Care Provider [phone] Encounter Details Date Type Department Care Team (Late st Contact Info) Description 03/29/2021 Lab Requisition [facility] DermPath Lab [address] [place] [phone] Fernando Ortiz MD [address] [place] [address] Social History Tobacco Use Types Packs/Day Years [...] AM CDT) Case Report Dermatopathology Report Case: [id number] Authorizing Provider: Fernando Ortiz MD Collected: 03/28/2021 12:00 AM Ordering Location: [facility] DermPath Lab Received: 03/29/2021 01:14 PM [...] specimen consists of a shave biopsy measuring [id number]. Jar 0. 4:10 PM CDT DERMATOPATHOLOGY LABORATORY [...] characteristic determined by the Dermatopathology Laboratory at [facility], directed by Dr. Shakira Briseno. These tests need not be, and therefore are not, approved by the [place] Food and Drug Administration. The tests are used for clinical purposes. Billing Codes Specimen Charges Stain Charges 60657 1 4:10 PM CDT DERMATOPATHOLOGY LABORATORY Embedded Images 4:10 PM CDT DERMATOPATHOLOGY LABORATORY Pathology/Cytolog y TISSUE SPECIMEN FROM SKIN / Unknown 03/28/2021 03/29/2021 1:14 PM CDT Fernando Ortiz MD LAB - PATHOLOGY/CYTO LOGY ORDERABLES DERMATOPATHOLOGY LABORATORY [facility] - Department of Dermatology [address] [place], [place] [address] [place] [address] documented in this encounter Visit Diagnoses Not on filedocumented in this encounter Care Teams Spreader Relationship Specialty Start Date End Date Aaron Vidales MD [address] [place], [place] [phone] PCP - General 12/04/16 documented as of this encounter
--- OUTSIDE RECORDS SUMMARY | 2024-09-05 08:39 | XMS_ITS | Clinical Summary ---
Author Organization [facility] Address [address] [place] [address] Care Team Providers Care Community Arts Centre Manager Name Role Phone Aaron Vidales MD Primary Care Provider [phone] Source Comments [facility],non-owned Affiliates and Associated Physician Practices is amultiple site organization consisting of ambulatory clinics and hospital sitesin [place], [place], [place] and [place]. This disclosure is being madepursuant to the Care Everywhere program and may not contain all information available regarding this patient. Last updated 18.[facility] Medications * Be aware that medications may [...] age to complete this topic Care Teams Community Arts Centre Manager Relationship Specialty Start Date End Date Aaron Vidales MD [address] [place] [address] PCP - General 12/04/16
--- OUTSIDE RECORDS SUMMARY | 2024-09-05 08:39 | XMS_ITS | Referral Summary ---
Author Organization [facility] Address [address] [place] [address] Care Team Providers Care Rfid Technician Name Role Phone Aaron Vidales MD Primary Care Provider [phone] Source Comments [facility],non-owned Affiliates and Associated Physician Practices is amultiple site organization consisting of ambulatory clinics and hospital sitesin [place], [place], [place] and [place]. This disclosure is being madepursuant to the Care Everywhere program and may not contain all information available regarding this patient. Last updated 18.[facility] Medications * Be aware that medications may [...] of Treatment Not on file Care Teams Rfid Technician Relationship Specialty Start Date End Date Aaron Vidales MD [address] [place], [place] [phone] PCP - General 12/04/16
[2024-09-05 09:03] VITALS: BP 142/70; PULSE 70; RESP 17; TEMP 36.6; O2SAT 100
== END 2024-09-05 09:03 | disposition home or self-care (01) ==
PROVIDERS: Emergency Provider Internal Medicine Critical Care Medicine; PCP Internal Medicine
DX: R07.89 Other chest pain (principal); I12.9 Hypertensive chronic kidney disease with stage 1 through stage 4 chronic kidney disease, or unspecified chronic kidney disease; E78.5 Hyperlipidemia, unspecified; W19.XXXA Unspecified fall, initial encounter; Y92.22 Religious institution as the place of occurrence of the external cause
CPT/HCPCS: 71046; 71100; 96374; 99283; J1885

== ENCOUNTER 2024-11-22 08:18 | Outpatient (CLI) | payer MEDICARE, SELFPAY ==
[2024-11-22 08:29] LABS: Hematocrit 39.5 % (35.0-42.0); Hemoglobin 13.1 g/dL (11.7-13.8); Mean Corpuscular HGB Conc 33.2 g/dL (32-36); Mean Corpuscular Hemoglobin 30.8 pg (27.0-31.0); Mean Corpuscular Volume 92.9 fL (78.0-102.0); Mean Platelet Volume 9.8 fl (9.2-11.8); Platelet Count Result 262 K/mm3 (150-420); Red Blood Count 4.25 M/mm3 (4.20-5.40); White Blood Count 3.5 K/mm3 (4.8-10.8)
--- OUTSIDE RECORDS SUMMARY | 2024-11-22 08:30 | XMS_ITS | Data Portability ---
Author Organization [facility], [address] [place] [address] Neurology ([place]) Address [address] [place] [address] Care Team Providers Care Trail Construction Worker Name Role Phone JETT LZAO Primary Care Provider JETT CHAVIRA Referring Provider Assessment Encounter Date [...] proceed with the proposed surgical procedure. jules [email or web address] Not available 01/16/2024 14:52:44 02/10/2024 02/10/2024 The [...] without erythema or ecchymosis. Patient has good wax room supervisor strength and is able to flex and [...] mg-acetamin ophen 325 mg tablet 2023 024 [facility], [address] [place], [place], [id number], 16:13:36 Patient TargetsNo targets recorded. Patient InstructionsNo instructions recorded. Reason for Referral None Reported. Results Created Date Observation Date Name Description Value Unit Range Abnormal Flag Note LastModifiedBy Organization Detail LastModifiedTime 01/08/20 24 12/06/2021 nerve condu ction study /EMG (PROC ) No observ ation record ed. [email or web address] [facility] [address] [place], [address], 01/08/2024 11:58:45 11/17/19 25 12/06/2021 imagi ng/di agnos tic resul t No observ ation record ed. [email or web address] Not Available 04:34:05 Result Notes None recorded. Problems Name Problem SNOMED Code Status Onset Date Resolution Date Notes Provider Name and Address Organization Details Recorded Time Carpal tunnel syndrome of right wrist [id number] Active 2023 Katerina Ray [facility] 12:05:59 Problem Notes None recorded. Procedures Surgical History Date Name Laterality Status Provider Name and Address Organization Details Recorded Time 02/10/20 [place] Operative Report completed Jaylon Montague MD [address] [place], [address], [facility] 02/11/2024 05:22:42 02/10/20 Carpal tunnel surgery completed Pily Fisher [facility] 03/18/2024 17:00:39 Colonoscopy with biopsy completed Not Available Health Note 02/17/2024 11:58:17 Imaging Results Imaging Date Name Status LastModified by Organiz ation Details LastModified Time 12/06/2021 nerve conduction study/EMG (PROC) completed [email or web address] [place] [address] [address] [place] [address], [address], 01/08/2024 11:58:45 12/06/2021 imaging/diagnos tic result completed [email or web address] Information not available 11/16/2024 04:34:05 Procedure Notes None recorded. Medical Equipment None [...] Do You Have A Medical Power Of Edge Inker Heels? No [email or web address] Information not available 02/17/2024 What [...] 0 02/17/2024 11:58:16 Medical History Condition Response Diabetes N Anxiety Disorder N Bleeding Disorder N Attention-deficit Hyperactivity Disorder N High Blood Pressure Y Arthritis N Hyperlipidemia Y Cancer N Stroke N Thyroid Problems N Asthma Y Depression N COPD N Anemia N Seizures N Heart Disease N Fibromyalgia N Osteoporosis N Kidney Disease N Gynecological HistoryNo gynecological history recorded. Obstetrics History GPAL:G 0 P 0 0 0 0 Past Encounters Encounter ID Performer Location Encounter Start Date Encounter Closed Date Diagnosis/Indication Diagnosis SNOMED-CT Code Diagnosis ICD10 Code Diagnosis Note [id number] Jaylon Montague MD [address] [facility] ([place]) [address] [place] [phone] 01/14/2024 11:16:49 01/14/2024 12:26:37 [id number] Thomas Barnard MD [facility] [place] Anesthesi a ([place]) [address] [place] [phone] 02/10/2024 13:24:51 02/19/2024 15:37:36 [id number] Jaylon Montague MD [facility] Orthopedi ([place]) [address] [place] [address], [address] [place] [phone] 02/10/2024 13:24:52 02/11/2024 13:05:39 Carpal tunnel syndrome of right wrist [id number] 40776 G56.01 [id number] CHERI BONILLA PA-C [address] ([place]) [address] [place] [phone] 02/24/2024 11:13:28 02/24/2024 11:58:49 Postoperative visit [id number] Z48.89 Removal of suture 666862 01 Z48.02 Health Concerns Section Related Observation LastModified by Organization Detai ls LastModified Time None Recorded Concern Status LastModified by Organization Details LastModified Time None Recorded Advance Directives Directive N: Payers Encounter Date Sequence Insurance Name Policy Number Policy Bojorquez Covered Member ID Bojorquez Member ID Guarantor Name 01/14/2024 1 [place] Allyson Kavita Lopez [id number] Allyson Lopez 01/14/2024 2 [facility] [id number] Serg Lopez [id number] Allyson Lopez 02/10/2024 1 [place] Allyson Lopez [id number] Allyson Lopez 02/10/2024 2 [facility] [id number] Serg Lopez [id number] Allyson Lopez 02/10/2024 1 [place] Allyson Lopez [id number] Allyson Lopez 02/10/2024 2 [facility] [id number] Serg Lopez [id number] Allyson Lopez 02/24/2024 1 [place] Allyson Lopez [id number] Allyson Lopez 02/24/2024 2 [facility] [id number] Serg Lopez [id number] Allyson Lopez Notes Date Note Type Note [...] helping her symptoms significantly. Jaylon Montague MD [facility], [address], [facility] 01/19/2024 05:06:41 4 text/html [facility] PRE-ANESTHETIC [...] limited to PONV, dental injury, sore throat, PA, stroke, etc. All questions were answered. Patient verbalize(s) understanding and agree(s) to proceed. Kai Barnard MD [address] [place] [address], [phone], [facility] 02/10/2024 14:38:49 4 text/html Allyson Corey a 73 year oldfemalepresenting for care. CHERI BONILLA PA-C [address] [place] [address], [phone], [facility] 02/25/2024 09:02:05 OBGyn Episode No OBEpisode recorded.
--- OUTSIDE RECORDS SUMMARY | 2024-11-22 08:30 | XMS_ITS | Encounter Summary ---
Author Organization [facility] Address [address] [place] [address] Care Team Providers Care Salesman/Owner Name Role Phone Aaron Vidales MD Primary Care Provider [phone] Encounter Details Date Type Department Care Team (Late st Contact Info) Description 03/29/2021 Lab Requisition [facility] Care DermPath Lab [address] [place] [id number] Fernando Ortiz MD [address] [place] [address] Social History Tobacco Use Types Packs/Day Years Used Date Smoking Tobacco: Never Smokeless Tobacco: Never Alcohol Use Standard Drinks/Week Comments Yes 0 (1 standard drink = 0.6 oz pur e alcohol) Comments Unknown Sex and Gender Information Value Date Recorded Sex Assigned at Not on file 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 DermPath Lab Received: 03/29/2021 01:14 PM Pathologist: [...] specimen consists of a shave biopsy measuring [id number]. Jar 0. 4:10 PM CDT DERMATOPATHOLOGY LABORATORY [...] characteristic determined by the Dermatopathology Laboratory at [facility], directed by Dr. Shakira Briseno. These tests need not be, and therefore are not, approved by the [place] Food and Drug Administration. The tests are used for clinical purposes. Billing Codes Specimen Charges Stain Charges 08023 1 4:10 PM CDT DERMATOPATHOLOGY LABORATORY Embedded Images 4:10 PM CDT DERMATOPATHOLOGY LABORATORY Pathology/Cytolog y TISSUE SPECIMEN FROM SKIN / Unknown 03/28/2021 03/29/2021 1:14 PM CDT Fernando Ortiz MD LAB - PATHOLOGY/CYTOLOGY ORD ERABLES Final Result DERMATOPATHOLOGY LABORATORY [facility] - Department of Dermatology [facility] Specialized Medicine [facility], [address]rd Floor [address] [phone] documented in this encounter Visit Diagnoses Not on filedocumented in this encounter Care Teams Salesman/Owner Relationship Specialty Start Date End Date Aaron Vidales MD [address] [id number] PCP - General 12/04/16 documented as of this encounter
--- OUTSIDE RECORDS SUMMARY | 2024-11-22 08:31 | XMS_ITS | Clinical Summary ---
Author Organization [facility] Address [address] [facility] [place] [address] Care Team Providers Care Flake Drier Name Role Phone Aaron Vidales MD Primary Care Provider [phone] Source Comments [facility],non-owned Affiliates and Associated Physician Practices is amultiple site organization consisting of ambulatory clinics and hospital sitesin [place], [place], [place] and [place]. This disclosure is being madepursuant to the Care Everywhere program and may not contain all information available regarding this patient. Last updated 18.[facility] Medications * Be aware that medications may not be up to date on this document. Alwaysverify current medications with the patient. ibuprofen (ADVIL) 200 MG capsule Take by mouth. 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 Gender Identity Not on file Sexual Orientation [...] Last Done Comments BONE DENSITY TESTING 1950 HEPATITIS C SCREENING 08/12/1966 DTAP/TDAP/TD VACCINES (1 - Tdap) 1967 PNEUMOCOCCAL VACCINE 50+ (1 of 1 - PCV) 1998 ZOSTER VACCINE (1 of 2) 1998 Respiratory Syncytial Virus (RSV) Vaccine Pt: or over 60 yrs (1 - 1-dose 75+ series) 2023 COVID-19 VACCINE ( - 2023-2 5 season) 2024 DEPRESSION SCREENING 07/21/2024 INFLUENZA VACCINE (Season Ended) 2025 HEPATITIS B VACCINE Aged Out No longe r eligible based on patient's age to complete this topic HIB VACCINE Aged Out No longer eligi ble based on patient's age to complete this topic HPV VACCINE Aged Out No longer eligi ble based on patient's age to complete this topic MENINGOCOCCAL (Group B) VACC INE SHARED DECISION-MAKING Aged Out No longer eligibl e based on patient's age to complete this topic MENINGOCOCCAL GROUPS A/C/Y/W VACCINE Aged Out No longer eligible b ased on patient's age to complete this topic Insurance MEDICARE [facility] Care Teams Flake Drier Relationship Specialty Start Date End Date Aaron Vidales MD [address] [place] [address] PCP - General 12/04/16
[2024-11-22 08:37] LABS: Add Urine Microscopic? YES; Appearance Urine Clear (Clear); Bilirubin Urine Negative (Negative); Blood Urine Trace-intact (Negative); Color Urine Light Yellow (Yellow); Glucose Urine UA Negative (Negative); Ketones Urine Negative (Negative); Leukocyte Esterase Ur 1+ (Negative); Nitrate Urine Negative (Negative); Protein Urine Negative (Negative); Specific Grav Ur 1.025 (1.010-1.020); Urobilinogen Urine 0.2 mg/dL (0.2-1.0); pH Urine 5.5 (5.0-8.0)
[2024-11-22 08:49] LABS: RBC Urine None seen /hpf (0-2); Squamous Epithelial Cell Urine Few /hpf (Few)
[2024-11-22 08:50] LABS: Bacteria Urine Trace /hpf; Mucus Urine Moderate /lpf
[2024-11-22 09:56] LABS: Alanine Aminotransferase 44 U/L (14-59); Alkaline Phosphatase 151 U/L (46-116); Anion Gap 10 mmol/L (4-12); Aspartate Amino Transferase 21 U/L (15-37); Bilirubin,Total 0.6 mg/dL (0.00-1.00); Blood Urea Nitrogen 17 mg/dL (7-18); Calcium 9.4 mg/dL (8.5-10.1); Carbon Dioxide 27 mmol/L (21-32); Chloride 103 mmol/L (98-108); Cholesterol 241 mg/dL (0-200); Estimated Glomerular Filt Rate > 60; Glucose 93 mg/dL (70-99); HDL Direct 78 mg/dL (40-60); LDL Cholesterol Calculated 154 mg/dL (<130); Osmolality Calculated 291 mOsm/kg (285-295); Potassium 4.4 mmol/L (3.5-5.1); Sodium 140 mmol/L (136-145); Thyroid Stimulating Hormone 2.04 uIU/mL (0.36-3.74); Total Protein 6.9 g/dL (6.4-8.2); Triglycerides 44 mg/dL (0-150)
== END 2024-11-22 08:19 | disposition home or self-care (01) ==
LOC: CHSLAB 08:20
PROVIDERS: PCP Internal Medicine; Visit Provider Internal Medicine
DX: I10 Essential (primary) hypertension (principal)
CPT/HCPCS: 36415; 80053; 80061; 81001; 84443; 85027

== ENCOUNTER 2024-11-24 10:46 | Outpatient (RCR) | payer MEDICARE, OTHER, SELFPAY ==
--- NOTE | 2024-11-24 12:02 | OPREHPOC ---
Outpatient Therapy Plan of Care This is a Multidisciplinary Plan of Care that may contain components documented by all disciplines (PT, OT, and ST.) PT Problem 1 PT Problem #1 Knowledge Deficit PT Goal 1 Goal / Goal Update Independent and compliant with HEP. Target Visit 4 PT Problem 2 PT Problem #2 Pain PT Goal 1 Goal / Goal Update Pt to report no more than 2/10 pain at rest. Pt to report no more than 4/10 with activity such as walking. Target Visit 8 PT Problem 3 PT Problem #3 Impaired Strength PT Goal 1 Goal / Goal Update Pt to improve gross LE strength to 5/5 without pain. Target Visit 8 PT Problem 4 PT Problem #4 Impaired Range of Motion PT Goal 1 Goal / Goal Update Pt to improve R knee flexion AROM to 135 for improved ability to get out of a chair and perform stairs. Target Visit 8 PT Problem 5 PT Problem #5 Impaired Functional Mobility PT Goal 1 Goal / Goal Update Pt to report 20% or less disability on LEFS questionnaire. Target Visit 8
--- NOTE | 2024-11-24 12:02 | PTOPEVAL1 ---
Assessment and note entered by Mariela Viveros, PT Evaluation Information Assessment Status Evaluation ICD-10 Condition Codes (PT) Pain in right knee M25.561,Repeated falls R29.6, Weakness R53.1 Onset 11/02/24 Subjective Information Pt reports onset of R knee pain that started on when she was sitting on a long car ride with her R ankle folded on top of her L knee. After sitting in this position for a prolonged time she noted the onset of a sharp pain on the medial side of her knee. Pain is reproduced with excessive bending and straightening of the knee, walking, climbing stairs and getting up out of a chair. Pt states her ultimate goal is to reduce her knee pain to be able to move around more easily when she travels and performs daily tasks at home. No recent imaging of the knee. She also feels like her balance is very poor and recently had a fall 2 weeks ago without injury. Pt reports she has recent history of rib fractures (Aug 2024) which she is getting over as well as recent finger fracture in Mar 2024 and toe fracture in Aug 2024. Pt also has a history of osteopnia. Reported Pain Level Pain Score 5: Self Report Assessment PT Clinical Summary Mrs. Lopez is a 74 yo female who enters the clinic with complaints of R knee pain. She demonstrates pain with end range flexion and extension as well as with resistive testing of the knee. Special tests cleared any ligament involvement. She demonstrates proximal hip weakness and R knee weakness with pain. She will benefit from skilled PT intervention to reduce pain and improve strength to be able to perform recreational and functional tasks at home with less difficulty. Plan of Care Interventions Electrical Stimulation,Gait Training,Hot Pack/Cold Pack,Manual Therapy,Neuro Re-education,Patient/ Caregiver Education,Therapeutic Activities, Therapeutic Exercise,Self-Care/Home Management PT Services Indicated Yes Treatment Frequency and 2x/week for 8 visits Duration These treatments will address the objective and functional deficits as defined above. The patient will be advanced safely and appropriately in order for the patient to progress towards his/her prior level of function. Additional exercises will be introduced and as well as a comprehensive home exercise program upon discharge, if needed, ?to ensure carryover of functional gains achieved in the clinic. This treatment plan has been reviewed and agreement upon by the patient.
--- NOTE | 2025-01-03 12:03 | OPREHPOC ---
Outpatient Therapy Plan of Care This is a Multidisciplinary Plan of Care that may contain components documented by all disciplines (PT, OT, and ST.) PT Problem 1 PT Problem #1 Knowledge Deficit PT Goal 1 Goal / Goal Update Independent and compliant with HEP. Target Visit 4 Progress Met PT Problem 2 PT Problem #2 Pain PT Goal 1 Goal / Goal Update Pt to report no more than 2/10 pain at rest. Pt to report no more than 4/10 with activity such as walking. Target Visit 8 Progress Not Met PT Problem 3 PT Problem #3 Impaired Strength PT Goal 1 Goal / Goal Update Pt to improve gross LE strength to 5/5 without pain. Target Visit 8 Progress Not Met PT Problem 4 PT Problem #4 Impaired Range of Motion PT Goal 1 Goal / Goal Update Pt to improve R knee flexion AROM to 135 for improved ability to get out of a chair and perform stairs. Target Visit 8 Progress Not Met PT Problem 5 PT Problem #5 Impaired Functional Mobility PT Goal 1 Goal / Goal Update Pt to report 20% or less disability on LEFS questionnaire. Target Visit 8 Progress Not Met
--- NOTE | 2025-01-03 12:04 | PTOPPROG ---
Assessment and note entered by Mariela Viveros, PT Evaluation Information Assessment Status Progress ICD-10 Condition Codes (PT) Pain in right knee M25.561,Repeated falls R29.6, Weakness R53.1 Onset 11/02/24 Subjective Information Pt recently got back from vacation and reports her knee is still swollen and painful. She states she also fell on her knee while trying to climb up a step to reach a microwave while on vacation. She reports this fall was accidental and that even though she fell on the knee, it doesn't feel any more or less painful and is just bruised. States her pain continues to be present at rest and gets worse with any kind of weight bearing. She states she even had to rent a scooter when at [employer] on vacation due to her pain making it difficult to walk. She has a doctor's appointment today to get her knee looked at again and to figure out what other treatment options are available. Assessment PT Clinical Summary Mrs. Anton presents for her 8th skilled PT visit for R knee pain. Despite continued exercise therapy, use of therapeutic modalities and independence with HEP, pt still notes R knee swelling and pain that increases with activity. Her R knee ROM has improved slightly but her strength is grossly the same compared to initial eval. She would benefit from further evaluation and/or imaging of the R knee to rule out intra- articular pathologies. Plan of Care Interventions Electrical Stimulation,Gait Training,Hot Pack/Cold Pack,Manual Therapy,Neuro Re-education,Patient/ Caregiver Education,Therapeutic Activities, Therapeutic Exercise,Self-Care/Home Management PT Services Indicated Yes Treatment Frequency and Hold PT at this time pending Dr's visit Duration These treatments will address the objective and functional deficits as defined above. The patient will be advanced safely and appropriately in order for the patient to progress towards his/her prior level of function. Additional exercises will be introduced and as well as a comprehensive home exercise program upon discharge, if needed, ?to ensure carryover of functional gains achieved in the clinic. This treatment plan has been reviewed and agreement upon by the patient.
--- NOTE | 2025-01-05 11:28 | PTOPDC ---
Assessment and note entered by Mariela Viveros, PT Evaluation Information Assessment Status Discharge - Pt Not Present ICD-10 Condition Codes (PT) Pain in right knee M25.561,Repeated falls R29.6, Weakness R53.1 Onset 11/02/24 Subjective Information Pt recently got back from vacation and reports her knee is still swollen and painful. She states she also fell on her knee while trying to climb up a step to reach a microwave while on vacation. She reports this fall was accidental and that even though she fell on the knee, it doesn't feel any more or less painful and is just bruised. States her pain continues to be present at rest and gets worse with any kind of weight bearing. She states she even had to rent a scooter when at [email or web address] on vacation due to her pain making it difficult to walk. She has a doctor's appointment today to get her knee looked at again and to figure out what other treatment options are available. Assessment PT Clinical Summary Pt saw her doctor following her last PT visit on . Following this appointment she contacted the PT clinic and stated that her doctor wants her to discharge from PT. States they will try steroids to relieve her knee pain and that if those don't work, they will do an MRI. Will discharge from skilled PT this date. Plan of Care PT Services Indicated No
== END 2025-01-03 20:00 | disposition home or self-care (01) ==
LOC: CHSPT 10:46
PROVIDERS: PCP Internal Medicine; Visit Provider Nurse Practitioner Family
DX: M25.561 Pain in right knee (principal)
CPT/HCPCS: 97014; 97110; 97112; 97150; 97161; 97530; G0283

== ENCOUNTER 2025-01-03 12:01 | Outpatient (CLI) | payer MEDICARE, OTHER, SELFPAY ==
--- NOTE | ~2025-01-03 | XR_ITS ---
Right Knee Technique: AP, lateral, sunrise, and oblique views were obtained. Clinical History: Pain Findings: No fracture or dislocation is seen. Osseous alignment is anatomic. Joint spaces are preserv ed without degenerative or erosive change. There is subtle chondrocalcinosis of the menisci. No joint effusion is seen. Impression: Subtle chondrocalcinosis of the menisci. Reviewed, dictated and finalized at location . Impression: Subtle chondrocalcinosis of the menisci.
--- OUTSIDE RECORDS SUMMARY | 2025-01-03 13:08 | XMS_ITS | Encounter Summary ---
Author Organization [facility] Address [address] [facility] [place] [address] Care Team Providers Care Airport Baggage Screener Name Role Phone Aaron Vidales MD Primary Care Provider [phone] Encounter Details Date Type Department Care Team (Late st Contact Info) Description 03/29/2021 Lab Requisition [facility] Care DermPath Lab [address] [place] [phone] Fernando Ortiz MD [address] [place] [address] Social History Tobacco Use Types Packs/Day Years Used Date Smoking Tobacco: Never Smokeless Tobacco: Never Alcohol Use Standard Drinks/Week Comments Yes 0 (1 standard drink = 0.6 oz pur e alcohol) Comments Unknown Sex and Gender Information Value Date Recorded Sex Assigned at Not on file 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 Gender Identity Not on file Sexual Orientation Not on file documented as of this encounter Plan of Treatment Not on file documented as of this encounter Procedures Procedure Name Priority Date/Time Associated Diagnosis Comments DERMATOPATHOLOGY Routine 03/28/2021 12:0 0 AM CDT documented in this encounter Results * DERMATOPATHOLOGY (03/28/2021 12:00 AM CDT) Case Report Dermatopathology Report Case: [id number] Authorizing Provider: Fernando Ortiz MD Collected: 03/28/2021 12:00 AM Ordering Location: [facility] DermPath Lab Received: 03/29/2021 01:14 PM Pathologist: Vini Briseno MD Specimen: Skin, right mid lat upper arm 4:10 PM CDT DERMATOPATHOLOGY LABORATORY Final Diagnosis Specimen A. SKIN, right mid lat upper arm: SEBORRHEIC KERATOSIS, CLONAL TYPE; IRRITATED (L82.1) 4:10 PM CDT DERMATOPATHOLOGY LABORATORY at 1610 CDT Clinical History R/O SCC, LPLK, Ramírez's, ISK. 4:10 PM CDT DERMATOPATHOLOGY LABORATORY Gross Description Specimen A: Received is one formalin filled container labeled with the patient's name and designated right mid lat upper arm. The specimen consists of a shave biopsy measuring [id number]. Jar 0. 4:10 PM CDT DERMATOPATHOLOGY LABORATORY [...] characteristic determined by the Dermatopathology Laboratory at [facility], directed by Dr. Shakira Briseno. These tests need not be, and therefore are not, approved by the [place] Food and Drug Administration. The tests are used for clinical purposes. Billing Codes Specimen Charges Stain Charges 39427 1 4:10 PM CDT DERMATOPATHOLOGY LABORATORY Embedded Images 4:10 PM CDT DERMATOPATHOLOGY LABORATORY Pathology/Cytolog y TISSUE SPECIMEN FROM SKIN / Unknown 03/28/2021 03/29/2021 1:14 PM CDT Fernando Ortiz MD LAB - PATHOLOGY/CYTOLOGY ORD ERABLES Final Result DERMATOPATHOLOGY LABORATORY [facility] - Department of Dermatology [facility] Specialized Medicine [facility]5 [facility], 3rd Floor [address] [phone] documented in this encounter Visit Diagnoses Not on filedocumented in this encounter Care Teams Airport Baggage Screener Relationship Specialty Start Date End Date Aaron Vidales MD [address] [id number] PCP - General 12/04/16 documented as of this encounter
--- OUTSIDE RECORDS SUMMARY | 2025-01-03 13:08 | XMS_ITS | Clinical Summary ---
Author Organization [facility] Address [address] [facility] [place] [address] Care Team Providers Care Heel Lift Gouger Name Role Phone Aaron Vidales MD Primary Care Provider [phone] Source Comments [facility],non-owned Affiliates and Associated Physician Practices is amultiple site organization consisting of ambulatory clinics and hospital sitesin [place], [place], [place] and [place]. This disclosure is being madepursuant to the Care Everywhere program and may not contain all information available regarding this patient. 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
== END 2025-01-03 12:02 | disposition home or self-care (01) ==
LOC: CHSIMG 12:02
PROVIDERS: PCP Internal Medicine; Visit Provider Internal Medicine
DX: M25.561 Pain in right knee (principal); M11.261 Other chondrocalcinosis, right knee
CPT/HCPCS: 73564

== ENCOUNTER 2025-01-14 14:41 | Outpatient (CLI) | payer MEDICARE, OTHER, SELFPAY ==
--- NOTE | ~2025-01-14 | MM_ITS ---
EXAMINATION: MM screening aroldo BI w giselle HISTORY: Screening TECHNIQUE: Craniocaudal and mediolateral oblique 3-D tomosynthesis images were obtained and synthetic 2-D images were generated. CAD analysis was submitted and interpreted. COMPARISON: 02/18/2023 BREAST PARENCHYMAL COMPOSITION: The breasts are heterogeneously dense, which may obscure small masses . FINDINGS: Bulky calcifications within the retroareolar position of the left breast, stable and benign in appearance. Stable parenchymal pattern without suspicious microcalcifications, architectural distortion, discrete masses or significant asymmetry. IMPRESSION: 1. No mammographic evidence of malignancy. 2. Recommend routine screening mammography in one year. BI-RADS Category 2: Benign finding(s). Reviewed, dictated and finalized at location []
== END 2025-01-14 14:42 | disposition home or self-care (01) ==
LOC: CHSIMG 14:42
PROVIDERS: PCP Internal Medicine; Visit Provider Obstetrics & Gynecology
DX: Z12.31 Encounter for screening mammogram for malignant neoplasm of breast (principal)
CPT/HCPCS: 77063; 77067

== ENCOUNTER 2025-01-29 08:24 | Outpatient (CLI) | payer MEDICARE, OTHER, SELFPAY ==
--- NOTE | ~2025-01-29 | MR_ITS ---
MRI of the right knee Clinical history: Pain Technique: Coronal proton density and proton density-weighted images, sagittal proton-density and T2 fat-sat images, and axial proton-density fat-saturated images were acquired. Findings: Anterior and posterior cruciate ligaments are intact. Medial collateral ligament and the la teral collateral ligament complex are intact. Popliteus tendon is intact. Probable oblique tear of the posterior horn of the medial meniscus. No lateral meniscal tear seen. There is extensive moderate to high-grade chondromalacia throughout the patella. Bone marrow signals are unremarkable. There is probable high-grade chondromalacia focally at the inferior femoral trochle a. Extensor mechanism is intact. No significant joint effusion. Small mildly complex Ivy cyst present. Impression: Oblique tear of the posterior horn medial meniscus. High-grade chondromalacia of the patellofemoral compartment, as detailed above. Small mildly complex Ivy's cyst. Reviewed, dictated and finalized at [facility]. Impression: Oblique tear of the posterior horn medial meniscus. High-grade chondromalacia of the patellofemoral compartment, as detailed above. Small mildly complex Ivy's cyst.
--- OUTSIDE RECORDS SUMMARY | 2025-01-29 08:27 | XMS_ITS | Data Portability ---
Author Organization [facility], [address] [place] [address] [place]rology ([place]) Address [address] 4th [place] [address] Care Team Providers Care Computer Technologist Name Role Phone JETT LAZO Primary Care Provider [phone] JETT CHAVIRA Referring Provider Assessment Encounter Date [...] proceed with the proposed surgical procedure. jules [email or web address] Not available 01/16/2024 14:52:44 02/10/2024 02/10/2024 The history and physical dated completed by has been reviewed, the patient has been examined [...] without erythema or ecchymosis. Patient has good state epidemiologist strength and is able to flex and [...] 325 mg tablet 2023 024 [facility], [address] [place], [address], 16:13:36 Patient TargetsNo targets recorded. Patient InstructionsNo instructions recorded. Reason for Referral None Reported. Results Created Date Observation Date Name Description Value Unit Range Abnormal Flag Note LastModifiedBy Organization Detail LastModifiedTime 01/08/20 24 12/06/2021 nerve condu ction study /EMG (PROC ) No observ ation record ed. [email or web address] [facility] [address] [place] [address], [address], 01/08/2024 11:58:45 11/17/19 25 12/06/2021 imagi ng/di agnos tic resul t No observ ation record ed. [email or web address] Not Available 04:34:05 Result Notes None recorded. Problems Name Problem SNOMED Code Status Onset Date Resolution Date Notes Provider Name and Address Organization Details Recorded Time Carpal tunnel syndrome of right wrist [id number] Active 2023 Katerina Ray [facility] 12:05:59 Problem Notes None recorded. Procedures Surgical History Date Name Laterality Status Provider Name and Address Organization Details Recorded Time 02/10/20 [place] Operative Report completed Jaylon Montague MD [address] [place] [address], [phone], [facility] 02/11/2024 05:22:42 02/10/20 Carpal tunnel surgery completed Pily Fisher [facility] 03/18/2024 17:00:39 Colonoscopy with biopsy completed Not Available Health Note 02/17/2024 11:58:17 Imaging Results None recorded. Procedure Notes None recorded. Medical Equipment None [...] Consumption? Moderate [email or web address] Information not available 02/17/2024 How Many Times Per Week Do You Exercise? 3-4 Times Per Week [email or web address] Information not available 02/17/2024 Do You Have A Medical Power Of Stave Bolt Equalizer? No [email or web address] Information not available 02/17/2024 What Was The Date Of Your Most Recent Tobacco Screening? 02/24/2024 [email or web address] Information not available 02/17/2024 What Is Your Relationship Status? [email or web address] Information not available 02/17/2024 Sex: Unknown Functional Status Question Answer Note LastModified by Organizat ion Details LastModified Time How many times per week do you consume alcohol? 1-2 times per week [email or web address] Information not available 02/17/2024 Do you use any illicit or recreational drugs? No [email or web address] Information not available 02/17/2024 What is your level of alcohol consumption? Occasional [email or web address] Information not available 02/17/2024 Are you currently employed? 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 Moderate [email or web address] [...] SNOMED-CT Code Diagnosis ICD10 Code Diagnosis Note [id number] Jaylon Montague MD [address] [facility] [address] [place] [address] 01/14/2024 11:16:49 01/14/2024 12:26:37 [id number] Thomas Barnard MD [facility] [place] Anesthesi a ([place]) [address] [place] [address], [place] [address] 02/10/2024 13:24:51 02/19/2024 15:37:36 [id number] Jaylon Montague MD [facility] [place] ([place]) [address] [place] [address], 2nd [place] [address] 02/10/2024 13:24:52 02/11/2024 13:05:39 Carpal tunnel syndrome of right wrist [id number] G56.01 [id number] CHERI BONILLA PA-C [address] [facility] [address] [place] [address] 02/24/2024 11:13:28 02/24/2024 11:58:49 Postoperative visit [id number] Z48.89 Removal of suture 318051 01 Z48.02 Health Concerns Section Related Observation LastModified by Organization Detai ls LastModified Time None Recorded Concern Status LastModified by Organization Details LastModified Time None Recorded Advance Directives Directive N: Payers Insurance Date Sequence Insurance Name Policy Number Policy Bojorquez Covered Member ID Bojorquez Member ID Guarantor Name 02/19/2024 1 [place] Allyson Walls Jessica [id number] Allyson Lopez 02/25/2024 2 [facility] [id number] Serg Kaur Jessica [id number] Allyson Jessica Notes Date Note Type Note Provider Name [...] helping her symptoms significantly. Jaylon Montague MD [address] [place] [address], [phone], [facility] 01/19/2024 05:06:41 4 text/html [facility] [...] limited to PONV, dental injury, sore throat, [place], stroke, etc. All questions were answered. Patient verbalize(s) understanding and agree(s) to proceed. Kai Barnard MD [address] [place] [address], [phone], [facility] 02/10/2024 14:38:49 4 text/html Allyson Corey a 73 year oldfemalepresenting for care. CHERI BONILLA PA-C [address] [place] [address], [phone], [facility] 02/25/2024 09:02:05 OBGyn Episode No OBEpisode recorded.
--- OUTSIDE RECORDS SUMMARY | 2025-01-29 08:27 | XMS_ITS | Continuity of Care Document ---
Author Organization [facility] Address [address] [place] [address] Phone Care Team Providers Care Corporate Logistics Manager Name Role Phone Unavailable Unavailable Unavailable Procedures Procedure Date THERAPEUTIC EXERCISES MANUAL THERAPY THERAPEUTIC EXERCISES MANUAL THERAPY THERAPEUTIC EXERCISES MANUAL THERAPY THERAPEUTIC EXERCISES MANUAL THERAPY THERAPEUTIC EXERCISES MANUAL THERAPY THERAPEUTIC EXERCISES MANUAL THERAPY THERAPEUTIC EXERCISES MANUAL THERAPY THERAPEUTIC EXERCISES MANUAL THERAPY Advance Directives Directive Yes / No Effective Date File Name No Information Encounters Encounter Description Practice Location Reason(s) For Visit Diagnoses Date Provider Providers [facility] [address], [place], [place], [id number], tel:[phone] [facility] No Information No Information Referring Provider: Ridge Hummel, [address], [place], [address]. tel:[phone] [facility], [address], [place], [place], [address], tel:[phone] [facility] No Information No Information Referring Provider: Ridge Hummel, [address], [place], [address]. tel:[phone] [facility], [address], [place], [place], [address], [place] tel:[phone] [facility] No Information No Information Referring Provider: Ridge Hummel, [address], [place], [address]. tel:[phone] [facility], [address], [place], [place], [address], [place] tel:[phone] [facility] No Information No Information Referring Provider: Ridge Hummel, [address], [place], [address]. tel:[phone] [facility], [address], [place], [place], [address], [place] tel:[phone] [facility] No Information No Information Referring Provider: Ridge Hummel, [address], [place], [address]. tel:[phone] [facility], [address], [place], [place], [address], [place] tel:[phone] [facility] No Information No Information Referring Provider: Ridge Hummel, [address], [place], [address]. tel:[phone] [facility], [address], [place], [place], [address], [place] tel:[phone] [facility] No Information No Information Referring Provider: Ridge Hummel, [address], [place], [address]. tel:[phone] [facility], [address], [place], [place], [address], [place] tel:[phone] [facility] Spinal stenosis in cervical region 3 No Information Referring Provider: Ridge Hummel, [address], [place], [address]. tel:[phone] Family History Family Member Type Diagnosis Age At Onset No Information Payers Payer name Insurance type Covered republican ID Authoriza ulisses(s) [facility] [id number] Social History Type Description Quantity Date Captured Comments Sex Female Smoking Status No Information Chief Complaint And Reason For Visit No Information Reason For Referral Reason For Referral No Information History Of Present Illness Encounter Date Complaint History Of Prese nt Illness No Information Functional Status Date Functional Assessmen t No Information Instructions Date Instruction Additional Infor mation No Information Assessments Type Assessment Date No Information Patient Care Teams Name Effective Dates (start - stop) Status Members No Information
--- OUTSIDE RECORDS SUMMARY | 2025-01-29 08:27 | XMS_ITS | Clinical Summary ---
Author Organization [facility] Address [address] [place] [address] Phone Care Team Providers Care Continuous Mining Machine Lode Miner Name Role Phone Aaron Vidales MD Primary Care Provider [phone] Allergies No known active allergies Medications acetaminophen (TYLENOL) 500 MG Tablet Take 500 mg by mouth every 4 hours as needed. Active spironolactone (ALDACTONE) 25 MG Tablet Take 25 mg by mouth daily. Active montelukast (SINGULAIR) 10 MG Tablet Take 10 mg by mouth daily. Active HYDROcodone-arben taminophen (NORCO) 5-325 MG Tablet Take 1 Tablet by mouth every 4 hours as needed. Active aspirin EC 81 MG Tablet Delayed Response Take 81 mg by mouth daily. Active Pyridoxine HCl (VITAMIN B-6 PO) Take by mouth daily. Active Glucosamine-Cho ndroit-Vit C-Mn (Glucosamine 1500 Complex) Capsule Take by mouth 2 times daily. Active Calcium Carb-Cholecalci ferol (CALCIUM 600 + D PO) Take by mouth 2 times daily. Active Multiple Vitamin (MULTI-VITAMIN PO) Take by mouth daily. 01/13/20 Discontinu ed(Med List Clean Up) pravastatin (PRAVACHOL) 10 MG Tablet Take 10 mg by mouth daily. 01/13/20 Discontinu ed(Med List Clean Up) diclofenac (VOLTAREN) 50 MG Tablet Delayed Response Take 50 mg by mouth 3 times daily. 01/13/20 Discontinu ed(Med List Clean Up) cyclobenzaprine (FLEXERIL) 5 MG Tablet Take 5 mg by mouth 3 times daily as needed. 01/13/20 Discontinu ed(Med List Clean Up) Encounters Date Type Department Care Team Description 01/17/2025 9:50 AM CDT Anesthesia Event [facility] Periop [address] [place] [address] Db Vega APRN, OYSTER WORKER 01/17/2025 9:40 AM CDT - 01/17/2025 10:00 AM CDT Surgery [facility] Periop [address] [place] [address] Kizzy Shin MD PhD CATARACT EXTRACTION WITH INTRAOCULAR LENS PLACEMENT, RIGHT EYE 01/17/2025 8:30 AM CDT - 01/17/2025 10:12 AM CDT Hospital Encounter [facility] Preop/Pacu II [address] [place] [address] Kizzy Shin MD PhD Discharge Disposition: Discharged to home or Selfcare 01/17/2025 Travel 01/12/2025 Travel from Last 3 Months Family History Medical History Relation Name Comments Cancer Father Cancer Mother Dementia Mother Stroke Mother Cancer Sister Lung Relation Name Status Comments Father Mother Sister Social History Tobacco Use Types Packs/Day Years Used Date Smoking Tobacco: Never Smokeless Tobacco: Never Tobacco Cessation:Counseling Given: Not Answered Alcohol Use Standard Drinks/Week Comments Yes 2 (1 standard drink = 0.6 oz pur e alcohol) Comments Unknown Sex and Gender Information Value Date Recorded Sex Assigned at Not on file Legal Sex Female 9:44 AM CDT Gender Identity Not on file Sexual Orientation Not on file Last Filed Vital Signs Vital Sign Reading Time Taken Comments Blood Pressure 143/76 01/17/2025 10:09 AM CDT Pulse 67 01/17/2025 10:09 AM CDT Temperature 36.6 C (97.9 F) 01/17/2025 10:09 AM CDT Respiratory Rate 17 01/17/2025 10:09 AM CDT Oxygen Saturation 100% 01/17/2025 10:09 AM CDT Inhaled Oxygen Concentration - - Weight 59 kg (130 lb) 01/17/2025 8:39 AM CDT Height 148.6 cm (4' 10.5) 01/17/2025 8:39 AM CD T Body Mass Index 26.71 01/17/2025 8:39 AM CDT Plan of Treatment Upcoming Encounters Date Type Department Care Team (Latest Contact Info) Description 02/07/2025 10:20 AM CDT Hospital Encounter [facility] Periop [address] [place] [address] Kizzy Shin MD PhD [address] [place] [address] 02/07/2025 10:20 AM CDT - 02/07/2025 10:40 AM CDT Surgery [facility] Periop [address] [place] [address] Kizzy Shin MD PhD [address] [place] [address] CATARACT EXTRACTION WITH INTRAOCULAR LENS PLACEMENT, LEFT EYE Scheduled Procedures Name Priority Associated Diagnoses Date/Ti me CATARACT EXTRACTION WITH IOL IMPLANT VISUALLY SIGNIFICANT CATARACT, LEFT EYE 02/07/2025 10:20 AM CDT Health Maintenance Due Date Last Done Comments DEXA Bone Density 1950 Hepatitis C Virus (HCV) Screening 1950 Pneumococcal Immunization (50+ years) (2 of 2 - PCV) 01/31/2016 01/30/2015 Respiratory Syncytial Virus (RSV) Immunization (Adult) (1 - 1-dose 75+ series) 2023 SARS-COV-2 Immunization ( season) 2024 06/26/2021, 08/14/2020, 07/17/2020 Influenza Immunization (#1) 03/21/202504/21, 05/22/2021, 05/11/2019, Additional history exists Zoster Immunization Completed 09/03/2019, 9 TdaP Immunization Completed 01/14/2020, 06/22/2009 Hepatitis B Immunization Aged Out No longer eligible based on patient's age to complete this topic Human Papillomavirus (HPV) Immunization Aged Out No longer eligible based on patient's age to complete this topic Meningococcal Immunization (ACWY) Aged Out No longer eligible based on patient's age to complete this topic Rotavirus Immunization Aged Out No lo nger eligible based on patient's age to complete this topic Medical Devices Implanted Type Area Emblem Cutter Device Identifier Shelf Expiration Date Model / Serial / Lot Technis 1-Piece Iol Implanted:Qty: 1 on 01/17/2025 by Kizzy Shin MD PhD at [facility] Right: Eye 11/26/2027 [id number] / [id number] / [id number] Procedures Procedure Name Priority Date/Time Associated Diagnosis Comments EXTCAP RMVL INSERT INTRAOC PROSTH W/ECP 01/17/2025 9:40 AM CDT VISUALLY SIGNIFICANT CATARACT, RIGHT EYE Special Needs 4'10.5 130lbs EXTCAP INSERT INTROC PROSTH W/ECP 01/17/2025 9:40 AM CDT VISUALLY SIGNIFICANT CATARACT, RIGHT EYE Special Needs 4'10.5 130lbs AK XCAPSL CTRC RMVL INSJ IO LENS PROSTH W/O ECP 01/17/2025 9:40 AM CDT VISUALLY SIGNIFICANT CATARACT, RIGHT EYE Special Needs 4'10.5 130lbs REMV CATARACT INTRACAP,INSERT LENS 01/17/2025 9:40 AM CDT VISUALLY SIGNIFICANT CATARACT, RIGHT EYE Special Needs 4'10.5 130lbs AK XCAPSL CTRC RMVL INSJ IO LENS PROSTH CPLX WO ECP 01/17/2025 9:40 AM CDT VISUALLY SIGNIFICANT CATARACT, RIGHT EYE Special Needs 4'10.5 130lbs from Last 3 Months Insurance MEDICARE [facility] Care Teams Continuous Mining Machine Lode Miner Relationship Specialty Start Date End Date Aaron Vidales MD [address] [place] [address] PCP - General Internal Medicine 01/17/25
--- OUTSIDE RECORDS SUMMARY | 2025-01-29 08:28 | XMS_ITS | Encounter Summary ---
Author Organization [facility] Address [address] [place] [address] Care Team Providers Care Cut Off Machine Operator Name Role Phone Aaron Vidales MD Primary Care Provider [phone] Encounter Details Date Type Department Care Team (Late st Contact Info) Description 03/29/2021 Lab Requisition [facility] [address] [place] [address] Fernando Ortiz MD [address] [place] [address] Social History Tobacco Use Types Packs/Day Years Used Date Smoking Tobacco: Never Smokeless Tobacco: Never Alcohol Use Standard Drinks/Week Comments Yes 0 (1 standard drink = 0.6 oz pur e alcohol) Comments Unknown Sex and Gender Information Value Date Recorded Sex Assigned at Not on file Legal Sex Female 5:37 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 Gender Identity Not on file Sexual Orientation Not on file documented as of this encounter Plan of Treatment Not on file documented as of this encounter Procedures Procedure Name Priority Date/Time Associated Diagnosis Comments DERMATOPATHOLOGY Routine 03/28/2021 12:0 0 AM CDT documented in this encounter Results * DERMATOPATHOLOGY (03/28/2021 12:00 AM CDT) Case Report Dermatopathology Report Case: [id number] Authorizing Provider: Fernando Ortiz MD Collected: 03/28/2021 12:00 AM Ordering Location: [facility] Received: 03/29/2021 01:14 PM [...] specimen consists of a shave biopsy measuring 83y70j0bj. Jar 0. 4:10 PM CDT DERMATOPATHOLOGY LABORATORY [...] determined by the Dermatopathology Laboratory at [facility], directed by Dr. Shakira Briseno. These tests need not be, and therefore are not, approved by the [place] Food and Drug Administration. The tests are used for clinical purposes. Billing Codes Specimen Charges Stain Charges 68063 1 4:10 PM CDT DERMATOPATHOLOGY LABORATORY Embedded Images 4:10 PM CDT DERMATOPATHOLOGY LABORATORY Pathology/Cytolog y TISSUE SPECIMEN FROM SKIN / Unknown 03/28/2021 03/29/2021 1:14 PM CDT Fernando Ortiz MD LAB - PATHOLOGY/CYTOLOGY ORD ERABLES Final Result DERMATOPATHOLOGY LABORATORY [facility] - Department of Dermatology [facility] Specialized Medicine [facility] [facility], 3rd Floor [address] [phone] documented in this encounter Visit Diagnoses Not on filedocumented in this encounter Care Teams Cut Off Machine Operator Relationship Specialty Start Date End Date Aaron Vidales MD [address] [id number] PCP - General 12/04/16 documented as of this encounter
--- OUTSIDE RECORDS SUMMARY | 2025-01-29 08:28 | XMS_ITS | Clinical Summary ---
Author Organization [facility] [employer] Address [address] [place] [address] Care Team Providers Care Elevated Motorman Name Role Phone Aaron Vidales MD Primary Care Provider [phone] Source Comments [facility] [employer],non-owned Affiliates and Associated Physician Practices is amultiple site organization consisting of ambulatory clinics and hospital sitesin [place], [place], [place] and [place]. This disclosure is being madepursuant to the Care Everywhere program and may not contain all information available regarding this patient. 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
== END 2025-01-29 08:25 | disposition home or self-care (01) ==
LOC: CHSIMG 08:25
PROVIDERS: PCP Internal Medicine; Visit Provider Internal Medicine
DX: M25.561 Pain in right knee (principal); S83.241A Other tear of medial meniscus, current injury, right knee, initial encounter; M94.261 Chondromalacia, right knee; M71.21 Synovial cyst of popliteal space [Baker], right knee
CPT/HCPCS: 73721

== ENCOUNTER 2025-02-13 20:22 | Emergency (ER) | payer MEDICARE, OTHER, SELFPAY ==
--- NOTE | ~2025-02-13 | XR_ITS ---
EXAM: XR wrist LT min 3V DATE: 02/13/2025 20:51 HISTORY: FALL 1 HR AGO. LEFT WRIST PAIN. . COMPARISON: 05/03/2024. FINDINGS: Comminuted fractures of the distal left radius with intra-articular extension and 22 degre es posterior angulation. No other fracture detected. 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 Osteopenia. IMPRESSION: Comminuted, intra-articular distal left radial fracture, with 20 degrees posterior angula tion. Reviewed, dictated and finalized at location K. IMPRESSION: Comminuted, intra-articular distal left radial fracture, with 20 de grees posterior angulation.
[2025-02-13 20:24] VITALS: BP 135/78; PULSE 93; RESP 14; TEMP 36.3; O2SAT 98
--- OUTSIDE RECORDS SUMMARY | 2025-02-13 20:25 | XMS_ITS | Clinical Summary ---
Author Organization [facility] Address [address] [place] [address] Phone Care Team Providers Care Learning And Development Specialist Name Role Phone Aaron Vidales MD Primary Care Provider [phone] Allergies No known active allergies Medications acetaminophen (TYLENOL) 500 MG Tablet Take 500 mg by mouth every 4 hours as needed. Active spironolactone (ALDACTONE) 25 MG Tablet Take 25 mg by mouth daily. Active montelukast (SINGULAIR) 10 MG Tablet Take 10 mg by mouth daily. Active HYDROcodone-acet aminophen (NORCO) 5-325 MG Tablet Take 1 Tablet by mouth every 4 hours as needed. Active aspirin EC 81 MG Tablet Delayed Response Take 81 mg by mouth daily. Active Pyridoxine HCl (VITAMIN B-6 PO) Take by mouth daily. Active Glucosamine-Ramos droit-Vit C-Mn (Glucosamine 1500 Complex) Capsule Take by mouth 2 times daily. Active Calcium Carb-Cholecalcif garcia (CALCIUM 600 + D PO) Take by mouth 2 times daily. Active Encounters Date Type Department Care Team Description 02/07/2025 10:00 AM CDT - 02/07/2025 10:20 AM CDT Surgery [facility] Periop [address] [place] [phone] Kizzy Shin MD PhD CATARACT EXTRACTION WITH INTRAOCULAR LENS PLACEMENT, LEFT EYE 02/07/2025 9:45 AM CDT Anesthesia Event [facility] Periop [address] [place] [address] Bong Reddy MD 02/07/2025 8:34 AM CDT - 02/07/2025 10:07 AM CDT Hospital Encounter [facility] Preop/Pacu II 1 [place] [address] Kizzy Shin MD PhD Discharge Disposition: Discharged to home or Selfcare 02/07/2025 Travel 02/01/2025 Travel 01/17/2025 9:50 AM CDT Anesthesia Event [facility] Periop [address] [place] [address] Db Vega, ZABRINA, PIPE FITTER SUPERVISOR 01/17/2025 9:40 AM CDT - 01/17/2025 10:00 AM CDT Surgery [facility] Periop [address] [place] [address] Kizzy Shin MD PhD CATARACT EXTRACTION WITH INTRAOCULAR LENS PLACEMENT, RIGHT EYE 01/17/2025 8:30 AM CDT - 01/17/2025 10:12 AM CDT Hospital Encounter [facility] Preop/Pacu II [address] [place] [address] Kizzy Shin MD PhD Discharge Disposition: Discharged [...] Sign Reading Time Taken Comments Blood Pressure 145/82 02/07/2025 10:02 AM CDT Pulse 70 02/07/2025 8:49 AM CDT Temperature 36.5 C (97.7 F) 02/07/2025 10:02 AM CDT Respiratory Rate 17 02/07/2025 10:02 AM CDT Oxygen Saturation 99% 02/07/2025 10:02 AM CDT Inhaled Oxygen Concentration - - Weight 59 kg (130 lb) 02/01/2025 7:00 AM CDT Height 152.4 cm (5') 02/01/2025 7:00 AM CDT Body Mass Index 25.39 02/01/2025 7:00 AM CDT Plan of Treatment Health Maintenance Due [...] this topic Medical Devices Implanted Type Area Depalletizer Operator Device Identifier Shelf Expiration Date Model / Serial / Lot Technis 1-Piece Iol Implanted:Qty: 1 on 01/17/2025 by Kizzy Shin MD PhD at [facility] Right: Eye 11/26/2027 [id number] / [id number] / [id number] Technis 1-Piece Iol Implanted:Qty: 1 on 02/07/2025 by Kizzy Shin MD PhD at [facility] Left: Eye 07/31/2027 [id number] / [id number] / [id number] Procedures Procedure Name Priority Date/Time Associated Diagnosis Comments EXTCAP RMVL INSERT INTRAOC PROSTH W/ECP 01/17/2025 9:40 AM CDT VISUALLY SIGNIFICANT CATARACT, RIGHT EYE Special Needs 4'10.5 130lbs EXTCAP INSERT INTROC PROSTH W/ECP 01/17/2025 9:40 AM CDT VISUALLY SIGNIFICANT CATARACT, RIGHT EYE Special Needs 4'10.5 130lbs [place] XCAPSL CTRC RMVL INSJ IO LENS PROSTH W/O ECP 01/17/2025 9:40 AM CDT VISUALLY SIGNIFICANT CATARACT, RIGHT EYE Special Needs 4'10.5 130lbs REMV CATARACT INTRACAP,INSERT LENS 01/17/2025 9:40 AM CDT VISUALLY SIGNIFICANT CATARACT, RIGHT EYE Special Needs 4'10.5 130lbs NH XCAPSL CTRC RMVL INSJ IO LENS PROSTH CPLX WO ECP 01/17/2025 9:40 AM CDT VISUALLY SIGNIFICANT CATARACT, RIGHT EYE Special Needs 4'10.5 130lbs from Last 3 Months Insurance MEDICARE [facility] Care Teams Learning And Development Specialist Relationship Specialty Start Date End Date Aaron Vidales MD [address] [place] [address] PCP - General Internal Medicine 01/17/25
--- OUTSIDE RECORDS SUMMARY | 2025-02-13 20:25 | XMS_ITS | Encounter Summary ---
Author Organization [facility] Address [address] [facility] [place] [address] Care Team Providers Care Inventory And Pricing Associate Name Role Phone Aaron Vidales MD Primary Care Provider [phone] Encounter Details Date Type Department Care Team (Late st Contact Info) Description 03/29/2021 Lab Requisition [facility] Care DermPath Lab [address] [place] [id number] Fernando Ortiz MD [address] [place] [address] Social History Tobacco Use Types Packs/Day Years Used Date Smoking Tobacco: Never Smokeless Tobacco: Never Alcohol Use Standard Drinks/Week Comments Yes 0 (1 standard drink = 0.6 oz pur e alcohol) Comments Unknown Sex and Gender Information Value Date Recorded Sex Assigned at Not on file 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..] specimen consists of a shave biopsy measuring [id number]. Jar 0. 4:10 PM CDT DERMATOPATHOLOGY LABORATORY [...] characteristic determined by the Dermatopathology Laboratory at [facility], directed by Dr. Shakira Briseno. These tests need not be, and therefore are not, approved by the [place] Food and Drug Administration. The tests are used for clinical purposes. Billing Codes Specimen Charges Stain Charges 97783 1 4:10 PM CDT DERMATOPATHOLOGY LABORATORY Embedded Images 4:10 PM CDT DERMATOPATHOLOGY LABORATORY Pathology/Cytolog y TISSUE SPECIMEN FROM SKIN / Unknown 03/28/2021 03/29/2021 1:14 PM CDT Fernando Ortiz MD LAB - PATHOLOGY/CYTOLOGY ORD ERABLES Final Result DERMATOPATHOLOGY LABORATORY [facility] - Department of Dermatology [facility], 3rd Floor [address] [phone] documented in this encounter Visit Diagnoses Not on filedocumented in this encounter Care Teams Inventory And Pricing Associate Relationship Specialty Start Date End Date Aaron Vidales MD [address] [id number] PCP - General 12/04/16 documented as of this encounter
--- OUTSIDE RECORDS SUMMARY | 2025-02-13 20:25 | XMS_ITS | Clinical Summary ---
Author Organization [facility] Address [address] [facility] [place] [address] Care Team Providers Care Saw Man Name Role Phone Aaron Vidales MD Primary Care Provider [phone] Source Comments [facility],non-owned Affiliates and Associated Physician Practices is amultiple site organization consisting of ambulatory clinics and hospital sitesin [place], [place] and [place]. This disclosure is being madepursuant to the Care Everywhere program and may not contain all information available regarding this patient. 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
--- OUTSIDE RECORDS SUMMARY | 2025-02-13 20:25 | XMS_ITS | Continuity of Care Document ---
Author Organization [facility] Address [address] [place] [address] Phone Care Team Providers Care Truck Dock Material Mover Name Role Phone Unavailable Unavailable Unavailable Procedures [...] Diagnoses Date Provider Providers Copied on Encounter [facility], [address], [place], [place], [id number], tel:[phone] Kranem No Information No Information Referring Provider: Ridge Hummel, [address], [address]. tel:[phone] [facility], [address], [place], [place], [id number], tel:[phone] Kranem No Information No Information Referring Provider: Ridge Hummel, [address], [address]. tel:[phone] [facility], [address], [place], [place], [address], [place] tel:[phone] [facility] No Information No Information Referring Provider: Ridge Hummel, [address], [place], [address]. tel:[phone] [facility], [address], [place], [place], [address], [place] tel:[phone] [facility] No Information No Information Referring Provider: Ridge Hummel, [address], [place], [address]. tel:[phone] [facility], [address], [place], [place], [address], [place] tel:[phone] [facility] No Information No Information Referring Provider: Ridge Hummel, [address], [place], [address]. tel:[phone] [facility], [address], [place], [place], [id number], [place] tel:[phone] [facility] No Information No Information Referring Provider: iRdge Hummel, [address], [place], [address]. tel:[phone] [facility], [address], [place], [place], [address], [place] tel:[phone] [facility] No Information No Information Referring Provider: Ridge Hummel, [address], [place], [address]. tel:[phone] [facility], [address], [place], [place], [address], [place] tel:[phone] [facility] Spinal stenosis in cervical region 3 No Information Referring Provider: Ridge Hummel, [address], [place], [address]. tel:[phone] Family History Family Member Type Diagnosis Age At Onset No Information Payers Payer name Insurance type Covered alliance party ID Authoriza ulisses(s) [facility] [id number] Social History Type Description Quantity Date Captured [...]
--- OUTSIDE RECORDS SUMMARY | 2025-02-13 20:25 | XMS_ITS | Data Portability ---
Author Organization [facility], [address] [place] [address] [place] ([place]) Address [address]th [place] [address] Care Team Providers Care Needleworker Name Role Phone JETT LAZO Primary Care Provider [phone] JETT CHAVIRA Referring Provider [phone] Assessment Encounter Date Assessment Date Assessment LastModified [...] proceed with the proposed surgical procedure. jules [email or web address] Not available 01/16/2024 14:52:44 02/10/2024 02/10/2024 The [...] without erythema or ecchymosis. 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 Patient InstructionsNo instructions recorded. Reason for Referral None Reported. Results Created Date Observation Date Name Description Value Unit Range Abnormal Flag Note LastModifiedBy Organization Detail LastModifiedTime 01/08/20 24 12/06/2021 nerve condu ction study /EMG (PROC ) No observ ation record ed. [email or web address] [facility] [address] [place] [address], [address], 01/08/2024 11:58:45 11/17/19 25 12/06/2021 imagi ng/di agnos tic resul t No observ ation record ed. [email or web address] Not Available 04:34:05 Result Notes None recorded. Problems Name Problem SNOMED Code Status Onset Date Resolution Date Notes Provider Name and Address Organization Details Recorded Time Carpal tunnel syndrome of right wrist 948906017460893 Active 2023 Katerina Ray [facility] 12:05:59 Problem Notes None recorded. Procedures Surgical History Date Name Laterality Status Provider Name and Address Organization Details Recorded Time 02/10/20 [place] Operative Report completed Jaylon Montague MD [address] [place] [address], [phone], [facility] 02/11/2024 05:22:42 02/10/20 Carpal tunnel surgery completed Pily Fisher [facility] 03/18/2024 17:00:39 Colonoscopy with biopsy completed [...] Do You Have A Medical Power Of Solidworks Mechanical Designer? No [email or web address] Information not available 02/17/2024 What [...] 0 02/17/2024 11:58:16 Medical History Condition Response Anxiety Disorder N Diabetes N Bleeding Disorder N Attention-deficit Hyperactivity Disorder N High Blood Pressure Y Arthritis N Hyperlipidemia Y Cancer N Thyroid Problems N Stroke N COPD N Depression N Asthma Y Seizures N Anemia N Heart Disease N Fibromyalgia N Osteoporosis N Kidney Disease N Gynecological HistoryNo gynecological history recorded. Obstetrics History GPAL:G 0 P 0 0 0 0 Past Encounters Encounter ID Performer Location Encounter Start Date Encounter Closed Date Diagnosis/Indication Diagnosis SNOMED-CT Code Diagnosis ICD10 Code Diagnosis Note [id number] Jaylon Montague MD [address] [facility] [address] [place] [address] 01/14/2024 11:16:49 01/14/2024 12:26:37 [id number] Thomas Barnard MD [facility] [place] [facility] ([place]) [address] [place] [address], [place] [address] 02/10/2024 13:24:51 02/19/2024 15:37:36 [id number] Jaylon Montague MD [facility] [place] [address] [place] [address], 2nd [place] [address] 02/10/2024 13:24:52 02/11/2024 13:05:39 Carpal tunnel syndrome of right wrist [id number] 53865 G56.01 [id number] CHERI BONILLA PA-C [address] [facility] [place] [address] [place] [address] 02/24/2024 11:13:28 02/24/2024 11:58:49 Postoperative visit [id number] Z48.89 Removal of suture 172679 01 Z48.02 Health Concerns Section Related Observation LastModified by Organization Detai ls LastModified Time None Recorded Concern Status LastModified by Organization Details LastModified Time None Recorded Advance Directives Directive N: Payers Insurance Date Sequence Insurance Name Policy Number Policy Bojorquez Covered Member ID Bojorquze Member ID Guarantor Name 02/19/2024 1 [place] Allyson Walls Jessica [id number] Allyson Lopez 02/25/2024 2 [facility] [id number] Serg Kaur Jessica [id number] Allyson Jessica Notes Date Note Type Note [...] symptoms significantly. Jaylon Montague MD [address] [place] [address], [phone], [facility] 01/19/2024 05:06:41 4 text/html [facility] PRE-ANESTHETIC EVALUATIONReported by PatientReason for VisitFor reason for visit, patient reportsproposed procedure: right ctr,surgeon: aretha, andpreop diagnosis: carpal tunnel syndrome, right upper limb.Review of SystemsFor general, patient reportsexercise tolerance moderate,denies sob, reyes, pnd, anddenies chest pain or chest tightness. For cardiac, patient reportsno hx of cad,hypertension, andhyperlipidemia. For pulmonary, patient reportsrespiratory system at baselineand__ asthma ,stable __ __.PSH-Complication/FM HXFor prior anesthetic complication, patient reportsno history of anesthesia complications. For family anesthetic hx, patient reportsno history of anesthesia complications.Physical ExamFor physical exam: airway, patient reportsmp iiandlimited mouth opening. For teeth, patient reportscrowns. For neck, patient reportsfull range of motion. For cardiovascular, patient reportsregular rate and rhythm. For respiratory, patient reportsclear to auscultation bilaterallyandno wheeze noted. For gastrointestinal, patient reportsnpo status >6 hrs solids, >2 hrs clear liquids. For vital signs, patient reportsvital signs reviewed. please refer to nursing preop note for values.Assessment and PlanFor assessment, patient reportsasa ps: ii. For plan, patient reportsmac.DiscussionFor discussion, patient reportsi have discussed with the patient the anesthetic plan, alternatives, pertinent risks, and complications; including but not limited to ponv, dental injury, sore throat, mi, stroke, etc. all questions were answered. patient verbalize(s) understanding and agree(s) to proceed.. Kai Barnard MD [address] [place] [address], [phone], [facility] 02/10/2024 14:38:49 4 text/html Allyson Corey a 73 year oldfemalepresenting for care. CHERI BONILLA PA-C [address] [place] [address], [phone], [facility] 02/25/2024 09:02:05 OBGyn Episode No OBEpisode recorded.
--- NOTE | 2025-02-13 20:27 | PC.NURSE ---
LEFT ARM ELEVATED ON PILLOW. ICE PACK IN PLACE
--- NOTE | 2025-02-13 20:28 | ED_ITS ---
HPI - Extremity Injury (Upper) General Chief Complaint: Extremity Injury, Upper Stated Complaint: L Wrist Time Seen by Provider: 02/13/25 20:27 Source: patient Mode of arrival: ambulatory Limitations: no limitations History of Present Illness HPI narrative: Patient is a 74-year-old female with a left wrist injury on the fall outstretched hand prior to arrival. No other injuries. Head and neck is negative for injuries. MD complaint: injury to: left and wrist Onset (ago): hour(s) ( One) Other injuries: none Place: home and outdoors Severity: moderate Severity scale (1-10): 5 Relieving factors: immobilization Exacerbating factors: movement of extremity and other ( palpation) Context: fall and injury Associated symptoms: denies other symptoms Treatments prior to arrival: other ( none) Related Data Home Medications ?Medication ?Instructions ?Recorded ?Confirmed ?Last Taken ?Type aspirin 81 mg tablet,delayed 81 mg PO DAILY 11/03/21 11/03/21 11/03/21 History release montelukast 10 mg tablet 10 mg PO DAILY 11/03/21 11/03/21 11/03/21 History pravastatin 10 mg tablet 10 mg PO DAILY 11/03/21 11/03/21 11/03/21 History spironolactone 25 mg tablet 25 mg PO DAILY 11/03/21 11/03/21 11/03/21 History Allergies Allergy/AdvReac Type Severity Reaction Status Date / Time No Known Allergies Allergy Mild Verified 02/13/25 21:19 Review of Systems Review of Systems: All systems reviewed & are unremarkable except as noted in HPI and below Constitutional: Constitutional: Reports no additional constitutional co mplaints Eyes: Eyes: Reports no additional eye complaints ENT: Reports system reviewed and no additional complaints, except as documented Cardiovascular: Cardiovascular: Reports no additional cardiovascular complaints Respiratory: Respiratory: Reports no additional respiratory complaints Gastrointestinal: Gastrointestinal: Reports no additional gastrointestinal complaints Genitourinary: Genitourinary: Reports no additional female genitourinary complaints Musculoskeletal: Musculoskeletal: Reports no additional musculoskeletal complaints Integumentary/Breasts: Skin/Breast: Reports system reviewed and no additional complaints, except as docu Neurologic: Reports system reviewed and no additional complaints, except as documented Psychiatric: Psychiatric: Reports no additional psychiatric complaints Endocrine: Endocrine: Reports no additional endocrine complaints Hematologic/Lymphatic: Hematologic/Lymphatic: Reports no additional hematologic/lymphatic complaints Allergic/Immunologic: Allergic/Immunologic: Reports no additional allergic/immunologic complaints PMFSH Past Medical History Medical History Dyslipidemia CKD (chronic kidney disease) HTN (hypertension) Exam Const: General: healthy appearing Nutritional Appearance: well nourished Orientation/consciousness: patient oriented x3 HENMT: Head: normal to inspection Ears: external ears normal Face/Nose/Sinus: Normal external nose present Eyes: Conjunctivae: conjunctivae normal Pupils: Equal, round and reactive pupils present EOM: EOMs intact bilaterally Neck: Neck: normal visual inspection Chest: Chest palpation & inspection: normal inspection of the chest Resp: Effort & Inspection: normal respiratory effort and not labored Auscultation: clear to auscultation bilaterally and no crackles Cardio: Rate: regular rate Rhythm: regular rhythm Heart sounds: no murmurs GI: Inspection: non-distended GI Palp: Yes Soft to palpation and No Tenderness to palpation present (GI) Auscultation: normal bowel sounds : General: Yes bladder normal to palpation Back/Spine/Pelvis: Back: no CVA tenderness Skin: General skin exam: normal color Rashes: no rashes Wounds: no wounds Neuro: General: patient oriented x3, moves all extremities and no meningeal signs Extrem: General: abnormal to inspection Other: left wrist has deformity radial aspect on examination and tenderness to palpation Psych: Mental Status: mental status grossly normal Affect: normal affect Attitude: cooperative Course Vital Signs Vital signs: Vital Signs Temperature 36.3 C L 02/13/25 20:24 Pulse Rate 93 02/13/25 20:24 Respiratory Rate 14 02/13/25 20:24 Blood Pressure 135/78 02/13/25 20:24 Pulse Oximetry 98 02/13/25 20:24 Oxygen Delivery Room Air 02/13/25 20:24 Temperature 36.9 C 02/13/25 22:05 Pulse Rate 79 02/13/25 22:05 Respiratory Rate 16 02/13/25 22:05 Blood Pressure 136/80 02/13/25 22:05 Pulse Oximetry 98 02/13/25 22:05 Oxygen Delivery Room Air 02/13/25 22:05 MDM - Extremity Injury (Upper) MDM Narrative Medical decision making narrative: patient is a 74-year-old female with a left wrist deformity after a fall on an outstretched hand. X-ray. [place]. Imaging Data Attestation: I personally reviewed and interpreted this imaging study as follows: Radiologist's impression: X-ray left wrist shows IMPRESSION: Comminuted, intra-articular distal left radial fracture, with 20 degrees posterior angulation. Discharge Plan Discharge Clinical Impression: Colles' fracture Qualifiers: Encounter type: initial encounter Fracture type: closed Laterality: left Qualified Code(s): S52.532A - Colles' fracture of left radius, initial encounter for closed fracture Patient Disposition: Home Condition: Stable Instructions: Wrist Fracture in Adults (ED) Additional Instructions: please follow-up with the primary doctor in the next week. You will need to see an software quality assurance specialist that can repair this wrist. Patient Language: Citizen Of [place] Prescriptions: New hydrocodone-acetaminophen 5-325 mg tablet 1 tablet PO Q8H PRN (Reason: pain) Qty: 20 0RF No Action aspirin [Aspir-81] 81 mg Tablet,Delayed Release (Dr/Ec) 81 mg PO DAILY spironolactone 25 mg tablet 25 mg PO DAILY pravastatin 10 mg tablet 10 mg PO DAILY montelukast 10 mg tablet 10 mg PO DAILY hydrocodone-acetaminophen 5-325 mg tablet 1 tablet PO Q12H PRN (Reason: pain) Qty: 10 0RF diclofenac sodium 50 mg tablet,delayed release (DR/EC) 50 mg PO Q12H PRN (Reason: pain) Qty: 30 0RF Follow-up/Referrals: Aaron Vidales MD [Primary Care Provider] - Time of Disposition: 21:34
--- OUTSIDE RECORDS SUMMARY | 2025-02-13 20:53 | XMS_ITS | Continuity of Care Document ---
Author Organization [facility] Address [address] [place] [address] Phone Care Team Providers Care Classified Ad Clerk Name Role Phone Unavailable Unavailable Unavailable Procedures [...] Diagnoses Date Provider Providers Copied on Encounter [facility], [address], [place], [place], [id number], tel:[phone] [facility] No Information No Information Referring Provider: Ridge Hummel, [address], [place], [address]. tel:[phone] [facility], [address], [place], [place], [id number], tel:[phone] [facility] No Information No Information Referring Provider: Ridge Hummel, [address], [place], [address]. tel:[phone] [facility], [address], [place], [place], [id number], [place] tel:[phone] [facility] No Information No Information Referring Provider: Ridge Hummel, [address], [place], [address]. tel:[phone] [facility], [address], [place], [place], [id number], [place] tel:[phone] [facility] No Information No Information Referring Provider: Ridge Hummel, [address], [place], [address]. tel:[phone] [facility], [address], [place], [place], [id number], [place] tel:[phone] [facility] No Information No Information Referring Provider: Ridge Hummel, [address], [place], [address]. tel:[phone] [facility], [address], [place], [place], [id number], [place] tel:[phone] [facility] No Information No Information Referring Provider: Ridge Hummel, [address], [place], [address]. tel:[phone] [facility], [address], [place], [place], [id number], [place] tel:[phone] [facility] No Information No Information Referring Provider: Ridge Hummel, [address], [place], [address]. tel:[phone] [facility], [address], [place], [place], [id number], [place] tel:[phone] [facility] Spinal stenosis in cervical region 3 No Information Referring Provider: Ridge Hummel, [address] [facility] [facility] [address], [place], [address]. tel:[phone] Family History Family Member Type Diagnosis Age At Onset No Information Payers Payer name Insurance type Covered constitution party ID Authoriza ulisses(s) [facility] [id number] Social History Type Description Quantity Date Captured [...]
--- OUTSIDE RECORDS SUMMARY | 2025-02-13 20:53 | XMS_ITS | Encounter Summary ---
Author Organization [facility] Address [address] [place] [address] Care Team Providers Care Psychiatric Nurse Name Role Phone Aaron Vidales MD Primary Care Provider [phone] Encounter Details Date Type Department Care Team (Late st Contact Info) Description 03/29/2021 Lab Requisition [facility] Care DermPath Lab [address] [place] [id number] Fernando Ortiz MD [address] [place] [address] Social History Tobacco Use Types Packs/Day Years Used Date Smoking Tobacco: Never Smokeless Tobacco: Never Alcohol Use Standard Drinks/Week Comments Yes 0 (1 standard drink = 0.6 oz pur e alcohol) Comments Unknown Sex and Gender Information Value Date Recorded Sex Assigned at Not on file 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 Jar 0. 4:10 PM CDT DERMATOPATHOLOGY LABORATORY [...] characteristic determined by the Dermatopathology Laboratory at [facility], directed by Dr. Shakira Briseno. These tests need not be, and therefore are not, approved by the [place] Food and Drug Administration. The tests are used for clinical purposes. Billing Codes Specimen Charges Stain Charges 81949 1 4:10 PM CDT DERMATOPATHOLOGY LABORATORY Embedded Images 4:10 PM CDT DERMATOPATHOLOGY LABORATORY Pathology/Cytolog y TISSUE SPECIMEN FROM SKIN / Unknown 03/28/2021 03/29/2021 1:14 PM CDT Fernando Ortiz MD LAB - PATHOLOGY/CYTOLOGY ORD ERABLES Final Result DERMATOPATHOLOGY LABORATORY [facility] Department of Dermatology [facility] [facility], 3rd Floor [address] [phone] documented in this encounter Visit Diagnoses Not on filedocumented in this encounter Care Teams Psychiatric Nurse Relationship Specialty Start Date End Date Aaron Vidales MD [address] [id number] PCP - General 12/04/16 documented as of this encounter
--- OUTSIDE RECORDS SUMMARY | 2025-02-13 20:53 | XMS_ITS | Clinical Summary ---
Author Organization [facility] [employer] Address [address] [place] [address] Care Team Providers Care Lime Filter Operator Name Role Phone Aaron Vidales MD Primary Care Provider [phone] Source Comments [facility] [employer],non-owned Affiliates and Associated Physician Practices is amultiple site organization consisting of ambulatory clinics and hospital sitesin [place], [place], [place] and [place]. This disclosure is being madepursuant to the Care Everywhere program and may not contain all information available regarding this patient. 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
--- OUTSIDE RECORDS SUMMARY | 2025-02-13 20:53 | XMS_ITS | Clinical Summary ---
Author Organization [facility] Address [address] [place] [address] Phone Care Team Providers Care Gauge Checker Name Role Phone Aaron Vidales MD Primary Care Provider [phone] Allergies No known active allergies Medications acetaminophen [...] CDT - 02/07/2025 10:20 AM CDT [facility] [address] [place] [phone] Kizzy Shin MD PhD CATARACT EXTRACTION WITH INTRAOCULAR LENS PLACEMENT, LEFT EYE 02/07/2025 9:45 AM CDT [facility]est[facility] [address] [place] [phone] Bong Reddy MD 02/07/2025 8:34 AM CDT - 02/07/2025 10:07 AM CDT Hospital Encounter [facility] Preop/Pacu II [address] [place] [address] Kizzy Shin MD PhD Discharge Disposition: Discharged to home or Selfcare 02/07/2025 Travel 02/01/2025 Travel 01/17/2025 9:50 AM CDT Anesthesia Event [facility] [address]iop [address] [place] [address] Db Vega, ZABRINA, [employer] LICENSE[employer] 01/17/2025 9:40 AM CDT - 01/17/2025 10:00 AM CDT [facility] [address] [place] [address] Kizzy Shin MD PhD CATARACT EXTRACTION WITH INTRAOCULAR LENS PLACEMENT, RIGHT EYE 01/17/2025 8:30 AM CDT - 01/17/2025 10:12 AM CDT [facility] [address] [place] [address] Kizzy Shin MD PhD Discharge Disposition: Discharged [...] this topic Medical Devices Implanted Type Area Mothers Helper Device Identifier Shelf Expiration Date Model / Serial / Lot Technis 1-Piece Iol Implanted:Qty: 1 on 01/17/2025 by Kizzy Shin MD PhD at [facility] Right: Eye 11/26/2027 [id number] / [id number] / [id number] Technis 1-Piece Iol Implanted:Qty: 1 on 02/07/2025 by Kizzy Shin MD PhD at [facility] Left: Eye 07/31/2027 [id number] / [id number] / [id number] Procedures Procedure Name Priority Date/Time Associated Diagnosis Comments EXTCAP RMVL INSERT INTRAOC PROSTH W/ECP 01/17/2025 9:40 AM CDT VISUALLY SIGNIFICANT CATARACT, RIGHT EYE Special Needs 4'10.5 130lbs EXTCAP INSERT INTROC PROSTH W/ECP 01/17/2025 9:40 AM CDT VISUALLY SIGNIFICANT CATARACT, RIGHT EYE Special Needs 4'10.5 130lbs NE XCAPSL CTRC RMVL INSJ IO LENS PROSTH W/O ECP 01/17/2025 9:40 AM CDT VISUALLY SIGNIFICANT CATARACT, RIGHT EYE Special Needs 4'10.5 130lbs REMV CATARACT INTRACAP,INSERT LENS 01/17/2025 9:40 AM CDT VISUALLY SIGNIFICANT CATARACT, RIGHT EYE Special Needs 4'10.5 130lbs NE XCAPSL CTRC RMVL INSJ IO LENS PROSTH CPLX WO ECP 01/17/2025 9:40 AM CDT VISUALLY SIGNIFICANT CATARACT, RIGHT EYE Special Needs 4'10.5 130lbs from Last 3 Months Insurance MEDICARE [facility] Care Teams Gauge Checker Relationship Specialty Start Date End Date Aaron Vidales MD [address] [place] [address] PCP - General Internal Medicine 01/17/25
[2025-02-13] MEDS: HYDROcodone/acetaminophen (*CRX) 5-325 MG TABLET 1 TAB PO (21:12)
--- NOTE | 2025-02-13 21:31 | PC.NURSE ---
PATIENT REPORTS THAT OCL TO LEFT WRIST FEELS FINE. DENIES TIGHTNESS OR TINGLING TO THE FINGERS.
[2025-02-13 22:05] VITALS: BP 136/80; PULSE 79; RESP 16; TEMP 36.9; O2SAT 98
== END 2025-02-13 22:05 | disposition home or self-care (01) ==
PROVIDERS: Emergency Provider Emergency Medicine; PCP Internal Medicine
DX: S52.532A Colles' fracture of left radius, initial encounter for closed fracture (principal); I12.9 Hypertensive chronic kidney disease with stage 1 through stage 4 chronic kidney disease, or unspecified chronic kidney disease; N18.9 Chronic kidney disease, unspecified; W18.30XA Fall on same level, unspecified, initial encounter
CPT/HCPCS: 29125; 73110; 99284; A9270

== ENCOUNTER 2025-04-27 13:11 | Outpatient (RCR) | payer MEDICARE, OTHER, SELFPAY ==
--- NOTE | 2025-04-27 13:51 | OPREHPOC ---
Outpatient Therapy Plan of Care This is a Multidisciplinary Plan of Care that may contain components documented by all disciplines (PT, OT, and ST.) PT Problem 1 PT Problem #1 Knowledge Deficit PT Goal 1 Goal / Goal Update independent and compliant with HEP. Target Visit 2 PT Problem 2 PT Problem #2 Impaired Range of Motion PT Goal 1 Goal / Goal Update improve L wrist ext to 50 degrees improve L wrist flex to 50 degrees improve L wrist UD to 20 degrees improve L forearm supination to 70 degrees Target Visit 3 PT Problem 3 PT Problem #3 Impaired Functional Mobility PT Goal 1 Goal / Goal Update quick dash to display 45% or less functional decline Target Visit 3
--- NOTE | 2025-04-27 13:51 | PTOPEVAL1 ---
Assessment and note entered by JT File, PT Evaluation Information Assessment Status Evaluation Diagnosis L wrist Onset 02/13/25 Subjective Information patient reports she fractured the L wrist on 02/13. she reports she was in a cast initially for 6 weeks, then an additional cast for 3 weeks, and now is in a wrist splint and coming to therapy. she [place] arm. she reports she was told to wear the splint, but take it off 2-3 times a day to do rom exercises. Reported Pain Level Pain Score 4: Self Report Assessment PT Clinical Summary mrs. corado is a pleasant 74 yo woman who presents to skilled PT services for evaluation and treatment of her L wrist. she fractured the L wrist back in January of this year. the wrist has been in an out of cast due to poor healing. she now displays tightness and weakness. at this time, strengthening is not indicated due to MD restrictions, but patient would benefit from continued skilled PT to improve her rom of the L wrist to improve her functional activity performance and quality of life. Plan of Care Interventions Manual Therapy,Neuro Re-education,Patient/ Caregiver Education,Therapeutic Activities, Therapeutic Exercise PT Services Indicated Yes Treatment Frequency and 1x weekly for 3 visits Duration These treatments will address the objective and functional deficits as defined above. The patient will be advanced safely and appropriately in order for the patient to progress towards his/her prior level of function. Additional exercises will be introduced and as well as a comprehensive home exercise program upon discharge, if needed, ?to ensure carryover of functional gains achieved in the clinic. This treatment plan has been reviewed and agreement upon by the patient.
--- NOTE | 2025-05-09 10:57 | OPREHPOC ---
Outpatient Therapy Plan of Care This is a Multidisciplinary Plan of Care that may contain components documented by all disciplines (PT, OT, and ST.) PT Problem 1 PT Problem #1 Knowledge Deficit PT Goal 1 Goal / Goal Update independent and compliant with HEP. Target Visit 2 Progress Met PT Problem 2 PT Problem #2 Impaired Range of Motion PT Goal 1 Goal / Goal Update improve L wrist ext to 50 degrees. not met improve L wrist flex to 50 degrees. met improve L wrist UD to 20 degrees. not met improve L forearm supination to 70 degrees. met Target Visit 11 Progress Partially Met PT Problem 3 PT Problem #3 Impaired Functional Mobility PT Goal 1 Goal / Goal Update quick dash to display 45% or less functional decline Target Visit 11
--- NOTE | 2025-05-09 10:57 | PTOPREEVAL ---
Assessment and note entered by JT File, PT Evaluation Information Assessment Status Re-evaluation Diagnosis L wrist Onset 02/13/25 Subjective Information patient reports she sees the ortho next friday. she reports in generally, the hand and wrist are moving better. she reports the pain is less overall, and reports she is able to touch her palm with at least 2 of her fingers when making a fist . Reported Pain Level Pain Score 1: Self Report Assessment PT Clinical Summary mrs. corado is a pleasant 74 yo woman who presents to skilled PT services for her 3rd skilled PT of L wrist rehab. she displays improved rom of the L wrist and hand. however, she has been restricted from strengthening due to post fracture precautions. she would benefit from continued skilled PT with the progress of rom, strength, and functional stability of the L wrist, but awaiting progression from ortho to advance and continue. Plan of Care Interventions Manual Therapy,Neuro Re-education,Patient/ Caregiver Education,Therapeutic Activities, Therapeutic Exercise PT Services Indicated Yes Treatment Frequency and patient to continue 2x weekly for 8 visits with Duration assumed progression of exercises. however, he will hold starting the increased frequency until after her follow up with ortho. These treatments will address the objective and functional deficits as defined above. The patient will be advanced safely and appropriately in order for the patient to progress towards his/her prior level of function. Additional exercises will be introduced and as well as a comprehensive home exercise program upon discharge, if needed, ?to ensure carryover of functional gains achieved in the clinic. This treatment plan has been reviewed and agreement upon by the patient.
== END 2025-05-02 20:00 | disposition home or self-care (01) ==
LOC: CHSPT 13:11
PROVIDERS: Visit Provider Orthopaedic Surgery
DX: S52.502D Unspecified fracture of the lower end of left radius, subsequent encounter for closed fracture with routine healing (principal)
CPT/HCPCS: 97110; 97161